=== PATIENT | female | born 1945 | race Caucasian/White ===

== ENCOUNTER 2016-06-12 11:34 | Emergency (ER) | payer MEDICARE, BC ==
--- NOTE | 2016-06-12 12:39 | RAD ---
INDICATION: Traumatic injury to the posterior head after a fall COMPARISON: None. TECHNIQUE: Contiguous axial sections of the brain were obtained from the skull base to the vertex without contrast. FINDINGS: The ventricles, cisterns and sulci mild involutional changes appropriate for the patient's age. There is mild periventricular and subcortical white matter hypoattenuation most compatible with mild microvascular disease. The parham-white matter differentiation is adequately maintained and there is no sulcal effacement. No significant focal abnormality or mass effect is present. There is no evidence for intracranial hemorrhage. There is mild calcified atherosclerosis involving the petrous carotid arteries and bilateral vertebral arteries. No significant focal osseous abnormality is present. There is right-sided deviation of the left nasal bone presumably a chronic finding based on the reported mechanism of injury. The visualized portion of the paranasal sinuses and mastoid air cells appear clear. IMPRESSION: 1. No calvarial fracture or acute intracranial hemorrhage. 2. Right of midline displaced left nasal bone fracture is presumably a chronic finding based on the reported injury. Please correlate to clinical examination. 3. Age-appropriate chronic intracranial findings described above.
[2016-06-12 13:16] VITALS: BP 156/69
--- NOTE | 2016-06-12 15:51 | ED ---
Head Injury - HPI Summary HPI Summary: Patient TAJ after a fall at home and hitting the back of her head. Denies memory loss, confusion, LOC or RUBIO. States she just wants to be safe and make sure there is no brain bleed. Denies anticoagulant usage. Patient has spinal stenosis with surgery scheduled for June. She states over the last few months she has been more off balance because of her back and now uses a cane. She was attempting to put her shoes on when she fell over d/t off balance. She is also endorsing left elbow pain but has full ROM. - History Of Current Complaint Chief Complaint: EDExtremityUpper Stated Complaint: FALL Time Seen by Provider: 06/12/16 11:53 Hx Obtained From: Patient Mechanism Of Injury: Blunt Trauma Onset/Duration: Started Hours Ago Onset of Pain: Immediate Severity Currently: Moderate Severity Initially: Moderate Pain Intensity: 6 Pain Scale Used: 0-10 Numeric Location of Head Injury: Occipital Character: Dull, Throbbing Alleviating Factor(s): Rest - Risk Factors SDH Risk Factor: Recent Trauma, Elderly - Allergies/Home Medications Allergies/Adverse Reactions: Allergies Allergy/AdvReac Type Severity Reaction Status Date / Time Benzyl Alcohol [From Enbrel] Allergy Mild UNKNOWN RXN Verified 06/12/16 11:52 Etanercept [From Enbrel] Allergy Mild UNKNOWN RXN Verified 06/12/16 11:52 Tromethamine [From Enbrel] Allergy Mild UNKNOWN RXN Verified 06/12/16 11:52 Piroxicam [From Feldene] Allergy Dizziness Verified 06/12/16 11:52 PMH/Surg Hx/FS Hx/Imm Hx Previously Healthy: Yes - spinal stenosis Endocrine/Hematology History: Reports: Hx Blood Transfusions, Hx Diabetes, Hx Thyroid Disease, Hx Anemia Cardiovascular History: Reports: Hx Hypertension Denies: Hx Pacemaker/ICD GI History: Reports: Hx Diverticulosis, Hx Gall Bladder Disease - gall bladder removed, Hx Gastroesophageal Reflux Disease, Hx Hiatal Hernia, Hx Ulcer, Other GI Disorders - difficulty swallowing History: Reports: Hx Kidney Infection, Hx Kidney Stones - 1970's, Hx Renal Disease - PER DR PRASAD SHE HAS RENAL DISEASE, Other Problems/Disorders - incontinence Musculoskeletal History: Reports: Hx Arthritis, Hx Rheumatoid Arthritis, Hx Fibromyalgia, Hx Orthopedic Injury - left total knee- 2011, Hx Osteoporosis, Other Musculoskeletal History - chronic pain Sensory History: Reports: Hx Cataracts, Hx Contacts or Glasses, Other Sensory Impairments - dentures Denies: Hx Hearing Aid Opthamlomology History: Reports: Hx Cataracts, Hx Contacts or Glasses, Other Sensory Impairments - dentures Psychiatric History: Denies: Hx Panic Disorder - Cancer History Cancer Type, Location and Year: knee replacement Hx Chemotherapy: No Hx Radiation Therapy: No - Surgical History Surgery Procedure, Year, and Place: gall bladder, bilat total knee replacement , partial hysterectomy,t&a Infectious Disease History: No Infectious Disease History: Reports: Hx Shingles - back in 1959 Denies: Hx of Known/Suspected MRSA, Traveled Outside the [place] in Last 30 Days - Social History Occupation: Retired Lives: With Family Alcohol Use: None Hx Substance Use: No Substance Use Type: Reports: None Smoking Status (MU): Never Smoked Tobacco Review of Systems Constitutional: Negative Eyes: Negative Cardiovascular: Negative Respiratory: Negative Genitourinary: Negative Positive: no symptoms reported, see HPI Positive: Arthralgia - elbow and thoracic and lumbar back at baseline d/t spinal stenosis Neurological: Negative Psychological: Normal All Other Systems Reviewed And Are Negative: Yes Physical Exam Triage Information Reviewed: Yes Vital Signs On Initial Exam: Initial Vitals Temp Pulse Resp BP Pulse Ox 98.1 F 80 16 156/78 99 06/12/16 11:44 06/12/16 11:44 06/12/16 11:44 06/12/16 11:44 06/12/16 11:44 Vital Signs Reviewed: Yes Appearance: Positive: Well-Appearing, No Pain Distress, Well-Nourished Skin: Positive: Warm, Skin Color Reflects Adequate Perfusion Head/Face: Positive: Normal Head/Face Inspection Eyes: Positive: Normal, EOMI, DYLAN, Conjunctiva Clear ENT: Positive: Normal ENT inspection Neck: Positive: Supple, Nontender Respiratory/Lung Sounds: Positive: Clear to Auscultation, Breath Sounds Present Cardiovascular: Positive: Normal Musculoskeletal: Positive: Normal, Strength/ROM Intact Neurological: Positive: Normal, Sensory/Motor Intact, Alert, Oriented to Person Place, Time, Speech Normal Psychiatric: Positive: Normal AVPU Assessment: Alert Diagnostics - Vital Signs Vital Signs Temp Pulse Resp BP Pulse Ox 06/12/16 13:15 98.0 F 73 18 156/69 06/12/16 11:44 98.1 F 80 16 156/78 99 - Laboratory Lab Statement: Any lab studies that have been ordered have been reviewed, and results considered in the medical decision making process. - CT No standard instances CT Interpretation: No Acute Changes CT Interpretation Completed By: Radiologist Head Injury Course/Dx Course Of Treatment: Brain CT showed no acute findings. Denies LOC or memory loss or confusion. Full range of motion in left elbow and without ecchymosis. Will DC home with return precautions. Patient feeling well and just wanted reassurance. - Diagnoses Differential Diagnosis/HQI/PQRI: Cerebral Contusion, Concussion Without LOC, Intracranial Bleed Provider Diagnoses: HI (head injury) Discharge - Discharge Plan Condition: Stable Disposition: HOME Patient Education Materials: Head Injury (ED) Referrals: Maru Bazzi MD [Primary Care Provider] - Additional Instructions: Brain CT was negative for any bleeding or other injury. You may use Tylenol or Ibuprofen as needed for any discomfort. Follow up with your PCP next week. If symptoms worsen or fail to improve, come back to ED for further evaluation.
--- NOTE | 2016-07-05 16:31 | PN ---
Progress Note - Progress Note Note: GCS: 15
== END 2016-06-12 13:15 | disposition home or self-care (01) ==
LOC: ED 11:34
DX: S09.90XA Unspecified injury of head, initial encounter (principal); W19.XXXA Unspecified fall, initial encounter; Y93.9 Activity, unspecified; Y92.9 Unspecified place or not applicable; Y99.9 Unspecified external cause status
CPT/HCPCS: 70450; 99282

== ENCOUNTER 2017-04-12 08:59 | Day surgery (SDC) | payer MEDICARE, BC ==
[~2017-04-12 08:59] MED LIST: Acetaminophen TAB* 325 MG PO PRN; Buffered Lidocaine 0.9% SYRIN* 5 ML/SYR SYRINGE INTRADERM ONE
[2017-04-12] MEDS ORDERED: Midazolam* 1 MG/ML 2 ML VIAL (2 MG) ONE ×2 (11:12→11:28)
[2017-04-12 11:54] VITALS: BP 144/67
[2017-04-12] MEDS ORDERED: Proparacaine 0.5% OPHTH.SOL* 15 ML BTL ONE (12:51)
[2017-04-12] MEDS ORDERED: Lidocaine 2% EPI 1:200000 MPF* 20 ML VIAL ONE (12:51)
[2017-04-12] MEDS ORDERED: Phenylephrine 2.5% OPTH.SOL* 2 ML BTL ONE (12:51)
[2017-04-12] MEDS ORDERED: Cyclopentolate 1% OPTH.SOL* 2 ML BTL ONE (12:51)
[2017-04-12] MEDS ORDERED: Povidone Iodine 5% OPTH* 30 ML BTL ONE (12:51)
[2017-04-12] MEDS ORDERED: Neomycin/Polymy/Dex OPTH.SUSP* MAXITROL 0.1% 5 ML ONE (12:51)
[2017-04-12] MEDS ORDERED: Lidocaine 1% MPF* 2 ML VIAL ONE (12:51)
[2017-04-12] MEDS ORDERED: Ketorolac 0.5% OPHTH (NF) 0.5 % 5 ML BTL ONE (12:51)
[2017-04-12] MEDS ORDERED: acetaZOLAMIDE TAB* 250 MG ONE (12:51)
--- NOTE | 2017-04-12 13:35 | OP ---
DATE OF OPERATION: 04/12/2017 - [facility] DATE OF : 1945. SURGEON: Willard Sabillon M.D. PREOPERATIVE DIAGNOSIS: Cataract left eye. POSTOPERATIVE DIAGNOSIS: Cataract left eye. OPERATIVE PROCEDURE: Extracapsular cataract extraction with intraocular lens implant and CTR left eye. DESCRIPTION OF PROCEDURE: The patient was brought to the operating room after being given 1/2% Alcaine with epinephrine drops in the preoperative area. The eye was prepped and draped in the usual sterile fashion. Sterile drape and eyelid speculum were placed. Again, topical 1/2% Alcaine with epinephrine was given. A paracentesis incision was made at the 3 o'clock position with the No.75 blade. Clear cornea incision 2.2 x 2.2-mm was created at the 6 o'clock position starting at the anterior limbus using the 2.2-mm keratome. The anterior chamber was irrigated with 0.4 mL of 1% non-preservative intracameral lidocaine and filled with DisCoVisc. A capsulorrhexis was completed using the cystotome and the Utrata forceps. Hydrodissection was performed with balanced salt solution. The lens nucleus was removed with the Phacoemulsification handpiece without incident. Cortex was removed with the irrigation-aspiration handpiece. The capsular bag was re-inflated using DisCoVisc and an [id number] 22.5 implant was inserted with the shooter, followed by a capsular tension ring ACTR 11 inserted with its shooter. The irrigation- aspiration handpiece was used to remove all residual DisCoVisc. The eye was refilled with balanced salt solution and the wound checked and found to be watertight. Topical Maxitrol drops were given. [id number]/[facility] #: [id number] [facility] CENTERLoly
== END 2017-04-12 12:09 | disposition home or self-care (01) ==
LOC: OREAST 08:59
PROVIDERS: ATTEND Specialist
DX: H25.812 Combined forms of age-related cataract, left eye (principal); E11.3213 Type 2 diabetes mellitus with mild nonproliferative diabetic retinopathy with macular edema, bilateral; H35.81 Retinal edema; H40.1424 Capsular glaucoma with pseudoexfoliation of lens, left eye, indeterminate stage; Z79.84 Long term (current) use of oral hypoglycemic drugs; Z79.4 Long term (current) use of insulin; I12.9 Hypertensive chronic kidney disease with stage 1 through stage 4 chronic kidney disease, or unspecified chronic kidney disease; N18.9 Chronic kidney disease, unspecified; E03.9 Hypothyroidism, unspecified; K21.9 Gastro-esophageal reflux disease without esophagitis; R13.10 Dysphagia, unspecified
CPT/HCPCS: A9270-GY; J2250; V2632

== ENCOUNTER 2017-04-19 06:54 | Day surgery (SDC) | payer MEDICARE, BC ==
[2017-04-19] MEDS ORDERED: Midazolam* 1 MG/ML 2 ML VIAL (2 MG) ONE ×3 (07:18→08:54)
[2017-04-19] MEDS ORDERED: Propofol* 10 MG/ML 20 ML BTL IV PUSH ONE (08:37)
[2017-04-19 09:33] VITALS: BP 140/81
--- NOTE | 2017-04-19 10:04 | OP ---
DATE OF OPERATION: 04/19/2017. DATE OF : 1945. SURGEON: Willard Sabillon M.D. PREOPERATIVE DIAGNOSIS: Cataract right eye. POSTOPERATIVE DIAGNOSIS: Cataract right eye. OPERATIVE PROCEDURE: Extracapsular cataract extraction with intraocular lens implant right eye. PROCEDURE: The patient was brought to the operating room after being given 1/2% Alcaine with epineph rine drops in the preoperative area. The eye was prepped and draped in the usual sterile fashion. S terile drape and eyelid speculum were placed. Again, topical 1/2% Alcaine with epinephrine was given . A paracentesis incision was made at the 9 o'clock position with the No.75 blade. Clear cornea inc ision 2.2 x 2.2-mm was created at the 12 o'clock position starting at the anterior limbus using the 2 .2-mm keratome. The anterior chamber was irrigated with 0.4 mL of 1% non-preservative intracameral l idocaine and filled with DisCoVisc. A capsulorrhexis was completed using the cystotome and the Utrat a forceps. Hydrodissection was performed with balanced salt solution. The lens nucleus was removed w ith the Phacoemulsification handpiece without incident. Cortex was removed with the irrigation-aspir ation handpiece. The capsular bag was re-inflated using DisCoVisc and an SN60WF 22.5 implant was ins erted with the shooter. The irrigation-aspiration handpiece was used to remove all residual DisCoVis c. The eye was refilled with balanced salt solution and the wound checked and found to be watertight . Topical Maxitrol drops were given. [id number]/[facility] #: [id number]
[2017-04-19] MEDS ORDERED: Cyclopentolate 1% OPTH.SOL* 2 ML BTL ONE (11:55)
[2017-04-19] MEDS ORDERED: acetaZOLAMIDE TAB* 250 MG ONE (11:55)
[2017-04-19] MEDS ORDERED: Neomycin/Polymy/Dex OPTH.SUSP* MAXITROL 0.1% 5 ML ONE (11:56)
[2017-04-19] MEDS ORDERED: Ketorolac 0.5% OPHTH (NF) 0.5 % 5 ML BTL ONE (11:56)
[2017-04-19] MEDS ORDERED: Povidone Iodine 5% OPTH* 30 ML BTL ONE (11:56)
[2017-04-19] MEDS ORDERED: Phenylephrine 2.5% OPTH.SOL* 2 ML BTL ONE (11:56)
[2017-04-19] MEDS ORDERED: Lidocaine 2% EPI 1:200000 MPF* 20 ML VIAL ONE (11:56)
[2017-04-19] MEDS ORDERED: Proparacaine 0.5% OPHTH.SOL* 15 ML BTL ONE (11:56)
[2017-04-19] MEDS ORDERED: Lidocaine 1% MPF* 2 ML VIAL ONE (11:56)
== END 2017-04-19 09:34 | disposition home or self-care (01) ==
LOC: OREAST 06:54
PROVIDERS: ATTEND Specialist
DX: H25.811 Combined forms of age-related cataract, right eye (principal); H40.1421 Capsular glaucoma with pseudoexfoliation of lens, left eye, mild stage; E11.3213 Type 2 diabetes mellitus with mild nonproliferative diabetic retinopathy with macular edema, bilateral; Z79.84 Long term (current) use of oral hypoglycemic drugs; Z79.899 Other long term (current) drug therapy; E03.9 Hypothyroidism, unspecified; I10 Essential (primary) hypertension; M06.9 Rheumatoid arthritis, unspecified; E78.5 Hyperlipidemia, unspecified; E55.9 Vitamin D deficiency, unspecified
CPT/HCPCS: A9270-GY; J2250; J2704; V2632

== ENCOUNTER 2018-02-19 06:04 | Day surgery (SDC) | payer MEDICARE, BC ==
--- NOTE | 2018-02-15 16:39 | HP ---
HISTORY AND PHYSICAL: DATE OF ADMISSION: 02/19/18 CHIEF COMPLAINT: End-stage renal disease. HISTORY OF PRESENT ILLNESS: The patient is a 72-year-old female referred and being admitted today to the hospital for creation of an arteriovenous fistula on the left arm for hemodialysis. The patient has been slowly and gradually progressing into renal failure to the point that it is anticipated that she will be requiring hemodialysis soon. She is at a stage 4 renal failure and for this reason she has been admitted for placement of an AV graft. The patient's past medical history that contributed to her renal failure is kidney stones, diabetes mellitus, hypertension, and chronic use of nonsteroidal anti- inflammatories for arthritis. PAST MEDICAL HISTORY: Remarkable for spinal stenosis for which she underwent back surgery, bilateral knee replacement for osteoarthritis of the knees, hypertension, insulin-dependent diabetes mellitus, osteoarthritis, and gastroesophageal reflux disease. CURRENT MEDICATIONS: Include: 1. Omeprazole 20 mg p.o. daily. 2. Glipizide ER 10 mg p.o. daily. 3. Levothyroxine sodium 100 mcg p.o. daily. 4. Toviaz 8 mg. 5. Lantus SoloSTAR insulin 100 units. 6. Simvastatin 20 mg. 7. Candesartan 4 mg p.o. daily. 8. Amitriptyline 25 mg p.o. b.i.d. 9. Metoprolol 25 mg p.o. daily, long lasting. 10. Januvia 100 mg p.o. daily. 11. Vitron-C 65/125 p.o. daily. 12. Preston-3 fatty acids. 13. D-Mannose 500 mg p.o. daily. 14. B complex p.o. daily. ALLERGIES: The patient is allergic to ENBREL and FELDENE. FAMILY HISTORY: Remarkable for father with colon cancer at age 80 and had pulmonary embolism following surgery and another brother with colon cancer. SOCIAL HISTORY: The patient is retired, nonsmoker. REVIEW OF SYSTEMS: Contributory for: Musculoskeletal: Osteoarthritis. Cardiovascular: Hypertension. Endocrine: Diabetes. Urinary System: Renal failure. PHYSICAL EXAMINATION GENERAL: The patient is alert and oriented, cooperative with this exam. VITAL SIGNS: Height is 65 inches, weight 165 pounds, blood pressure is 142/88, BMI of 27.5, pulse of 77, respirations of 18. HEAD AND NECK: Reveal no neck nodes or masses. No thyromegaly. No bruits. No JVD. LUNGS: Clear to auscultation bilaterally. HEART: Regular without murmurs. ABDOMEN: Soft. No organomegaly. EXTREMITIES: Upper extremities: The patient has excellent palpable pulses bilaterally at the axillary, brachial, radial and ulnar, all palpable and present. Examination of the patient's veins reveals poor quality veins at the level of the forearm. The patient has good size antecubital vein on the left side and a good brachial pulse making the left arm being the nondominant arm adequate for placement of a [place]-Yonathan graft for dialysis. The patient is not a candidate for a [place] fistula, especially she is going to be started soon on hemodialysis. The remaining of the lower extremity examination is unremarkable. DIAGNOSTIC IMPRESSION: End-stage renal disease. PLAN: The plan is admission for placement of hemodialysis AV graft of the left arm. The patient understands the potential complications including but not exclusive of others such as infection, occlusion, bleeding, hematoma, edema, etc. The patient understands, agrees and wishes to proceed. [id number]/[facility] #: [id number] MTDD
[~2018-02-19 06:04] MED LIST changes: -Acetaminophen TAB* 325 MG PO PRN; +NS 0.9% 1000 ML* 1,000 ML IV SCH
[2018-02-19] MEDS ORDERED: Buffered Lidocaine 0.9% SYRIN* 5 ML/SYR SYRINGE ONE (06:18)
[2018-02-19] MEDS ORDERED: ceFAZolin 2 GM PREMIX in ORs 2 GM/50 ML BAG IVPB ONE (06:18)
[2018-02-19] MEDS ORDERED: Lidocaine 1% INJ* 10 MG/ML 30 ML SDV ONE (07:06)
[2018-02-19] MEDS ORDERED: Heparin DIALYSIS ONLY(*) 1,000 UNITS/ML VIAL ONE (07:06)
[2018-02-19] MEDS ORDERED: Heparin 2 UNITS/ML IVPREMIX* 1,000 ML IV ONE (07:08)
[2018-02-19] MEDS ORDERED: fentaNYL* 50 MCG/ML 2 ML VIAL (100 MCG VIAL) ONE (07:10)
[2018-02-19] MEDS ORDERED: Midazolam* 1 MG/ML 2 ML VIAL (2 MG) ONE (07:10)
[2018-02-19] MEDS ORDERED: Lidocaine 2% PF * 5 ML VIAL ONE (07:59)
[2018-02-19] MEDS ORDERED: Famotidine IV* 10 MG/ML 2 ML (20 mg) ONE (08:00)
[2018-02-19] MEDS ORDERED: Propofol* 10 MG/ML 20 ML BTL IV PUSH ONE (08:00)
[2018-02-19] MEDS ORDERED: Bupivacaine 0.5% SDV PF* 30ML VIAL ONE (08:24)
[2018-02-19] MEDS ORDERED: Ondansetron INJ* 2 MG/ML VIAL IV PRN (08:27)
[2018-02-19] MEDS ORDERED: Naloxone* 0.4 MG/ML 1 ML VIAL IV PRN (08:27)
[2018-02-19] MEDS ORDERED: fentaNYL* 50 MCG/ML 2 ML VIAL (100 MCG VIAL) IV PRN (08:27)
[2018-02-19] MEDS ORDERED: Acetaminophen TAB* 325 MG PO PRN (08:27)
[2018-02-19] MEDS ORDERED: DiMENhydriNATE IV* 50 MG/ML VIAL IV PUSH PRN (08:27)
[2018-02-19 10:33] VITALS: BP 144/93
--- NOTE | 2018-02-20 03:52 | OP ---
DATE OF OPERATION: 02/19/18 [facility] DATE OF : [birth year] SURGEON: Dada Gallegos MD. MOLDING MACHINE TENDER: Summer Oliveros NP ANESTHESIA: Local plus MAC. PRE-OP DIAGNOSIS: End-stage renal disease. POST-OP DIAGNOSIS: End-stage renal disease. OPERATIVE PROCEDURE: Creation of left arm arteriovenous graft with Propaten Christiana- Yonathan taper 4 to 6. ESTIMATED BLOOD LOSS: None. INDICATIONS: The patient is a 72-year-old female with history of end-stage renal disease requiring hemodialysis. For this reason, the patient was brought in for placement of an arteriovenous graft. DESCRIPTION OF PROCEDURE: The patient was taken to the procedure room. She was placed in supine position. Proper identification of the patient and site of surgery was done. Under sedation, the patient was prepped and draped in the usual sterile fashion. After this was completed, lidocaine 1% was used to infiltrate on the antecubital fossa and a transverse incision was made over this area. The incision was carried down through the skin, subcutaneous tissue. Bleeders were controlled by electrocoagulation. After this was done, exposure of the left cephalic vein in the antecubital area was done. The vein was then encircled in vessel loops and after this was completed, we then proceeded to open the antecubital fascia, exposed the brachial artery at this level, which was then encircled in vessel loops proximally and distally, and after this was completed, we then proceeded to map the loop in order to tunnel the graft and once this was done, we used a curved tunneler and proceeded to tunnel the graft with a counter incision more distally using Propaten Christiana graft , 4 to 6 mm taper 4 mm to the brachial artery and 6 mm to the cephalic vein. After the graft was tunneled and in place, the patient received 3000 units of heparin and 5 minutes later, we then proceeded to crossclamp the cephalic vein proximally and distally. A venotomy was done with an 11 blade and this was extended with Johnson scissors. The Christiana-Yonathan graft was then beveled to the anastomosis and then an end-to-side anastomosis was done using 7-0 Prolene. After this was completed, the graft was then irrigated with heparinized saline. Good flow was noted into the veins and after this was done, we then proceeded to clamp the graft and proceeded to perform the arterial anastomosis. At this point, we then proceeded to cross clamp the brachial artery distally. Then proximally, an arteriotomy was done with 11 blade. This was extended with Johnson scissors and the 4 mm end of the graft was then anastomosed to the brachial artery using 7-0 Prolene continuous fashion in an end-to-side anastomosis. After this was completed, the venous site clamp was then released. The brachial artery clamps were opened into the graft. There was excellent flow into the veins. There was excellent palpable radial pulse and good thrill towards the venous side of the anastomosis. After this was completed, no bleeding was noted. The subcutaneous tissue was closed with interrupted 4-0 Prolene and the skin was closed with subcuticular 5-0 Monocryl. The counter incision was closed in the same manner as well. The patient tolerated the procedure well and she was taken in good condition to recovery room. [id number]/[facility] #: [id number] MTDD
== END 2018-02-19 10:37 | disposition home or self-care (01) ==
LOC: OR 06:04
PROVIDERS: ATTEND Surgery
DX: N18.6 End stage renal disease (principal); I12.9 Hypertensive chronic kidney disease with stage 1 through stage 4 chronic kidney disease, or unspecified chronic kidney disease; E03.9 Hypothyroidism, unspecified; E11.9 Type 2 diabetes mellitus without complications; Z79.4 Long term (current) use of insulin; Z79.84 Long term (current) use of oral hypoglycemic drugs
CPT/HCPCS: C1768; J0690; J1644; J2250; J2704; J3010

== ENCOUNTER 2018-02-28 22:32 | Emergency (ER) | payer MEDICARE, BC ==
--- OUTSIDE RECORDS SUMMARY | 2018-02-28 22:49 | XMS REPORT | Continuity of Care Document ---
:1945 External Reference #:[id number] Author Name Abel Santiago MD Address [address] [place] [address] Care Team Providers Name Role Phone Maru Bazzi M.D. Care Team Information Color Checker Roving Or Yarn Unavailable Maru Bazzi M.D. Primary Care Physician Unavailable Payers Type Date Identification Numbers Payment Provider Subscriber Policy Number: [id number] [place] [employer] Alan Espino PayID: [id number] [address] [facility] [address] Policy Number: [id number] [facility] Alan Espino PayID: [id number] [address] [address] [place] [address] Advance Directives Description No Information Available Problems Date Description Provider Status Onset: 02/12/2018 Gastroesophageal reflux disease Michell Espino PA-C Active Onset: 02/12/2018 Sore throat symptom Michell Espino PA-C Active Family History Date Family Member(s) Problem(s) Comments General Cancer General Diabetes General Thyroid Disease Onset: (1959) General Pulmonary Embolism Mother Social History Type Date Description Comments Sex Unknown Occupation Retired Tobacco Use Start: Unknown Never Smoked Cigarettes Tobacco Use Start: Unknown Never Smoked Cigars Tobacco Use Start: Unknown Never Smoked A Pipe Smokeless Tobacco Never Used Smokeless Tobacco ETOH Use Currently rarely consumes alcohol Tobacco Use Start: Unknown Patient has never smoked Smoking Status Reviewed: 02/27/18 Patient has never smoked Allergies, Adverse Reactions, Alerts Date Description Reaction Status Severity Comments 10/15/2015 Feldene Active 10/15/2015 Enbrel Active Medications Medication Date Status Form Strength Qnty SIG Indications Ordering Provider Clotrimazole 02/27/ Active Lozenges 10mg 70unit 1 lozenge Abel 2017 s 5 times a E. Jack, day Toviaz / Active Tablets ER 8mg as Rose Mary, 0000 24HR directed Maru Singleton Diovan / Active Tablets 80mg 1 by mouth Rose Mary, 0000 every day Maru Singleton Glucosamine / Active Capsules 1500Com 1 by mouth Rose Mary, Chondroitin 0000 every day Maru 1500 Complex Mani Levothyroxine / Active Tablets 88mcg 1 by mouth Rose Mary, Sodium 0000 every day Maru Singleton Amitriptyline / Active Tablets 25mg 25 mg Rose Mary, HCL 0000 every Maru night at M.DClaire bedtime Januvia / Active Tablets 100mg 1 by mouth Rose Mary, 0000 every day Maru Singleton Lovaza / Active Capsules 1gm as Rose Mary, 0000 directede Maru Singleton Breeze 2 Test / Active Rose Mary, Discs And 0000 Maru Khan M.D. Liothyronine / Active Tablets 5mcg 2 by mouth Rose Mary, Sodium 0000 every day Maru Singleton Glipizide ER / Active Tablets ER 5mg 1 by mouth Rose Mary, 0000 24HR every day Maru Singleton Omeprazole / Active Tablets DR 20mg 1 by mouth Rose Mary, 0000 every day Maru Singleton Voltaren / Active Gel 1% apply Rose Mary, 0000 small Maru valerio M.D. four times a day Cranberry / Active Capsules 250mg 1 by mouth Rose Mary, 0000 every day Maru Singleton Mannose Powder / Active as Rose Mary, 0000 directed Maru Singleton Simvastatin / Active Tablets 20mg 1 by mouth Rose Mary, 0000 every day Maru Singleton Acidophilus / Active Capsules as Rose Mary, 0000 directed Maru Singleton Topiaz / Active as Rose Mary, 0000 directed Maru Singleton Lantus Solostar / Active Solution 100Unit/ML Rose Mary, 0000 Pen-Inject Maru M.D. Vitamin B / Active Tablets 1 by mouth Unknown Complex 0000 every day Cefuroxime / Hx Tablets 500mg 1 by mouth Rose Mary, Axetil 0000 - twice a Maru day M.D. 2017 Janet Breeze 2 / Hx Liquid Normal Rose Mary, Control 0000 - Maru M.D. 2017 Ascensia / Hx Liquid Normal Rose Mary, Autodisc Normal 0000 - Maru Control M.D. 2017 Metformin HCL / Hx Tablets 850mg 1 by mouth Rose Mary, 0000 - twice a Maru day M.D. 2017 Zocor / Hx Tablets 20mg take as Rose Mary, 0000 - directed Maru 02/11/ M.D. 2017 Feldene / Hx Capsules 10mg as Rose Mary, 0000 - directed Maru 10/13/ M.D. 2015 Enbrel / Hx Solution 25mg as Rose Mary, 0000 - Rec directed Maru 10/14/ M.D. 2015 Immunizations Description No Information Available Vital Signs Date Vital Result Comment 02/27/2018 9:38am Weight 168.00 lb Weight 76.205 kg Height 65 inches 5'5" Height in cm's 165.1 cm BMI (Body Mass Index) 28.0 kg/m2 02/12/2018 2:49pm Weight 167.00 lb Weight 75.751 kg Height 65 inches 5'5" Height in cm's 165.1 cm BMI (Body Mass Index) 27.8 kg/m2 10/15/2015 2:47pm BP Systolic 127 mmHg BP Diastolic 85 mmHg Heart Rate 109 /min Respiratory Rate 17 /min Weight 164.00 lb Weight 74.390 kg Height 66 inches 5'6" Height in cm's 167.6 cm BMI (Body Mass Index) 26.5 kg/m2 Results Test Date Facility Test Result H/L Range Note Laboratory test 10/15/2015 [facility] Erythrocyte Sed 18 mm/Hr 0-40 finding c/o [facility] [place] [address] [phone] Procedures Date Code Description Status 02/27/2018 51733 Fiberoptic Laryngoscopy Completed Encounters Type Date Location Provider Dx Diagnosis Office Visit 02/12/2018 [place] Michell Espino PA-C R07.0 Pain in throat 2:30p 05/01/07 K21.9 Gastro-esophageal reflux disease without esophagitis Office Visit 10/15/2015 2:45p [place],[facility] 05/01/07 Abel Kelly R22.1 Localized MD Jack swelling, mass and lump, neck Plan of Treatment Future Appointment(s):03/16/2018 9:00 am - Abel Santiago MD at [place], After 05/01/809 - Abel Santiago, MDR07.0 Pain in skilizY17.10 Dysphagia, unspecified
--- OUTSIDE RECORDS SUMMARY | 2018-02-28 22:49 | XMS REPORT | Continuity of Care Document ---
:1945 External Reference #:[id number] Author Name Michell Espino PA-C Address [address] [place] [address] Care Team Providers Name Role Phone Maru Bazzi M.D. Care Team Information [employer] Unavailable Maru Bazzi M.D. Primary Care Physician Unavailable Payers Type Date Identification Numbers Payment Provider Subscriber Policy Number: [id number] [place] [employer] Alan Espino PayID: [id number] [address] [facility] [place] [address] Policy Number: [id number] [facility] Alan Espino PayID: [id number] [address] [address] [place] [address] Advance Directives Description No Information Available Problems [...] Use Start: Unknown Patient has never smoked Allergies, Adverse Reactions, Alerts Date Description Reaction Status Severity Comments 10/15/2015 Feldene Active 10/15/2015 Enbrel Active Medications Medication Date Status Form Strength Qnty SIG Indications Ordering Provider Toviaz / Active Tablets ER 8mg as directed Rose Mary, 0000 24HR Maru Singleton Diovan / Active Tablets 80mg 1 by mouth Rose Mary, 0000 every day Maru Singleton Glucosamine / Active Capsules 1500Com 1 by mouth Rose Mary, Chondroitin 0000 every day Maru 1500 Complex M.Igor Levothyroxine / Active Tablets 88mcg 1 by mouth Rose Mary, Sodium 0000 every day Maru Singleton Amitriptyline / Active Tablets 25mg 25 mg every Rose Mary, HCL 0000 night at Maru bedtime Wild.Igor Januvia / Active Tablets 100mg 1 by mouth Rose Mary, 0000 every day Maru Singleton Lovaza / Active Capsules 1gm as Rose Mary, 0000 directede Maru Singleton Breeze 2 Test / Active Rose Mary, Discs And 0000 Maru Lancets Mani Liothyronine / Active Tablets 5mcg 2 by mouth Rose Mary, Sodium 0000 every day Maru Singleton Glipizide ER / Active Tablets ER 5mg 1 by mouth Rose Mary, 0000 24HR every day Maru Singleton Omeprazole / Active Tablets DR 20mg 1 by mouth Rose Mary, 0000 every day Maru Singleton Voltaren / Active Gel 1% apply small , 0000 amount four Maru times a day M.DClaire Cranberry / Active Capsules 250mg 1 by mouth Rose Mary, 0000 every day Maru Singleton Mannose Powder / Active as directed Rose Mary, 0000 Maru Singleton Simvastatin / Active Tablets 20mg 1 by mouth Rose Mary, 0000 every day Maru Singleton Acidophilus / Active Capsules as directed Rose Mary, 0000 Maru Singleton Topiaz / Active as directed Rose Mary, 0000 Maru Singleton Lantus Solostar / Active Solution 100Unit/ML Rose Mary, 0000 Pen-Inject Maru Singleton Vitamin B / Active Tablets 1 by mouth Unknown Complex 0000 every day Cefuroxime / Hx Tablets 500mg 1 by mouth Rose Mary, Axetil 0000 - twice a day Maru .D. 2017 Janet Breeze 2 / Hx Liquid Normal Rose Mary, Control 0000 - Maru .D. 2017 Ascensia / Hx Liquid Normal Rose Mary, Autodisc Normal 0000 - Maru Control .D. 2017 Metformin HCL / Hx Tablets 850mg 1 by mouth Rose Mary, 0000 - twice a day Maru .D. 2017 Zocor / Hx Tablets 20mg take as Rose Mary, 0000 - directed Maru M.D. 2017 Feldene / Hx Capsules 10mg as directed Rose Mary, 0000 - Maru M.D. 2015 Enbrel / Hx Solution 25mg as directed Rose Mary, 0000 - Rec Maru M.D. 2015 Immunizations Description No Information Available Vital Signs Date Vital Result Comment 02/12/2018 2:49pm Weight 167.00 lb Weight 75.751 [...] Result H/L Range Note Laboratory test 10/15/2015 [facility] Erythrocyte Sed 18 mm/Hr 0-40 finding c/o [facility] [place] [address] [phone] Procedures Description No Information Available Encounters Type Date Location Provider Dx Diagnosis Office Visit 02/12/2018 [place] Michell Espino PA-C R07.0 Pain in throat 2:30p 05/01/07 K21.9 Gastro-esophageal reflux disease without esophagitis Office Visit 10/15/2015 2:45p [place] 05/01/07 Abel Kelly R22.1 Localized MD Jack swelling, mass and lump, neck Plan of Treatment Future Appointment(s):02/27/2018 9:30 am - Abel Santiago MD at [place], After 05/01/809 - KEVIN Smith-CR07.0 Pain in [id number] Gastro- esophageal reflux disease without esophagitisComments:Alan is reassured that there are no ominous findings that would suggest cancer. There are findings that could suggest acid reflux within or near to the larynx. I have asked her to try [id number] omeprazole or Nexium 20 mg twice a day for no more than a month to see if this helps. 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 She understands to call if she feels her symptoms are worsening or changing, or for questions should they arise.
[2018-02-28] MEDS ORDERED: Ondansetron INJ* 2 MG/ML VIAL IV ONE (23:20)
[2018-02-28] MEDS ORDERED: NS 0.9% 1000 ML* 1,000 ML IV ONE (23:20)
[2018-02-28] MEDS ORDERED: Morphine INJ* 4 MG/ML 1 ML SYRINGE (NEW SYRINGE VERSION) IV ONE (23:20)
--- NOTE | 2018-02-28 23:22 | ED ---
HPI Chest Pain - HPI Summary HPI Summary: This patient is a 72 year old F presenting to [facility] accompanied by daughter with a chief complaint of mid-sternal, lower CP that began on 02/24/2018. The patient rates the pain 8/10 in severity. Symptoms aggravated by nothing. Symptoms alleviated by nothing. Patient reports difficulty swallowing and nausea. Patient denies vomiting. Patient states she was recently diagnosed with thrush. Patient states she is in stage 4 renal failure and recently had an AV fistula placed in left arm. Patient states she is not currently on dialysis. - History of Current Complaint Chief Complaint: EDGeneral Time Seen by Provider: 02/28/18 23:12 Hx Obtained From: Patient Onset/Duration: Started Days Ago, Atraumatic, Still Present Timing: Constant Initial Severity: Severe Current Severity: Severe Pain Intensity: 8 Pain Scale Used: 0-10 Numeric Chest Pain Location: Mid Sternal, Lower Sternal Chest Pain Radiates: No Aggravating Factor(s): Nothing Alleviating Factor(s): Nothing Associated Signs and Symptoms: Positive: Nausea, Other: - Positive difficulty swallowing. Negative: Vomiting - Additional Pertinent History Primary Care Physician: [id number] - Allergy/Home Medications Allergies/Adverse Reactions: Allergies Allergy/AdvReac Type Severity Reaction Status Date / Time etanercept [From Enbrel] Allergy tendonitis Verified 02/19/18 06:25 in knees piroxicam [From Feldene] Allergy Dizziness Verified 02/19/18 06:25 PMH/Surg Hx/FS Hx/Imm Hx Previously Healthy: No Endocrine/Hematology History: Reports: Hx Blood Transfusions, Hx Diabetes - type 2, Hx Thyroid Disease, Hx Anemia Cardiovascular History: Reports: Hx Hypertension Denies: Hx Pacemaker/ICD, Other Cardiovascular Problems/Disorders Respiratory History: Denies: Other Respiratory Problems/Disorders GI History: Reports: Hx Diverticulosis, Hx Gall Bladder Disease - gall bladder removed, Hx Gastroesophageal Reflux Disease, Hx Hiatal Hernia, Hx Ulcer, Other GI Disorders - difficulty swallowing does bother somewhat History: Reports: Hx Kidney Infection, Hx Kidney Stones - 1970's, Hx Renal Disease - PER DR PRASAD SHE HAS RENAL DISEASE, Other Problems/Disorders - incontinence Musculoskeletal History: Reports: Hx Arthritis, Hx Rheumatoid Arthritis, Hx Bursitis - right shoulder, Hx Fibromyalgia, Hx Orthopedic Injury - left total knee- 2011, Hx Osteoporosis, Other Musculoskeletal History - chronic pain Sensory History: Reports: Hx Cataracts - both eye, Hx Contacts or Glasses, Other Sensory Impairments - dentures Denies: Hx Hearing Aid Opthamlomology History: Reports: Hx Cataracts - both eye, Hx Contacts or Glasses , Other Sensory Impairments - dentures Neurological History: Denies: Other Neuro Impairments/Disorders Psychiatric History: Denies: Hx Panic Disorder - Cancer History Cancer Type, Location and Year: knee replacement Hx Chemotherapy: No Hx Radiation Therapy: No - Surgical History Surgery Procedure, Year, and Place: gall bladder, bilat total knee replacement , partial hysterectomy,t&a. lumbar spinal surgery 06/2016. , partial hysterectomy, 1978, [facility]. ,t&a as a child. lumbar spinal surgery 06/2016, [facility] Hx Anesthesia Reactions: No - Immunization History Date of Influenza Vaccine: 2018 Immunizations Up to Date: Yes Infectious Disease History: No Infectious Disease History: Reports: Hx Shingles - back in 1959 Denies: Hx of Known/Suspected MRSA, Traveled Outside the in Last 30 Days - Family History Known Family History: Positive: Diabetes Negative: Cardiac Disease - Social History Occupation: Retired Lives: Alone Alcohol Use: Rare Alcohol Amount: social Hx Substance Use: No Substance Use Type: Reports: None Smoking Status (MU): Never Smoked Tobacco Review of Systems Positive: Chest Pain Positive: Nausea, Other - Positive difficulty swallowing. Negative: Vomiting All Other Systems Reviewed And Are Negative: Yes Physical Exam - Summary Physical Exam Summary: Appearance: Well appearing, no pain distress Skin: warm, dry, reflects adequate perfusion Head/face: normal Eyes: EOMI, DYLAN ENT: normal Neck: supple, non-tender Respiratory: CTA, breath sounds present Cardiovascular: tachycardia, pulses symmetrical Abdomen: non-tender, soft Bowel: present Musculoskeletal: normal, strength/ROM intact Neuro: normal, sensory motor intact, A&Ox3 Triage Information Reviewed: Yes Vital Signs On Initial Exam: Initial Vitals Temp Pulse Resp BP Pulse Ox 98.9 F 78 20 140/66 100 02/28/18 22:34 02/28/18 22:34 02/28/18 22:34 02/28/18 22:34 02/28/18 22:34 Vital Signs Reviewed: Yes Diagnostics - Vital Signs Vital Signs Temp Pulse Resp BP Pulse Ox 02/28/18 22:34 98.9 F 78 20 140/66 100 - Laboratory Result Diagrams: 02/28/18 23:41 02/28/18 23:41 Lab Statement: Any lab studies that have been ordered have been reviewed, and results considered in the medical decision making process. - Radiology CXR Radiology Interpretation Completed By: ED Physician Summary of Radiographic Findings: CXR reveals, per ED physician, no acute disease. - CT CT Abdomen and Pelvis CT Interpretation Completed By: Radiologist Summary of CT Findings: CT abdomen and pelvis reveals, per radiologist, 1. No acute findings. 2. 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 recommend 6 month followup. 1. No acute findings. The previously noted stones located and in the left ureterovesical junction has cleared. No hydronephrosis is seen. 2. No evidence of bowel obstruction. Diverticular changes involving the sigmoid colon. No evidence of acute diverticulitis. No abnormal bowel wall thickening. ED physician has reviewed this radiology report. - EKG 2323 Cardiac Rate: NL EKG Rhythm: Sinus Rhythm - [address] Segment: Normal Ectopy: None Summary of EKG Findings: An EKG taken at 2323 reveals normal sinus rhythm at 75 BPM with no acute changes. Chest Pain Course/Dx - Course Course Of Treatment: This patient is a 72 year old F presenting to [facility] accompanied by daughter with a chief complaint of mid-sternal, lower CP that began on 02/24/2018. Physical Exam Findings: Tachycardia. An EKG taken at 2323 reveals normal sinus rhythm at 75 BPM with no acute changes. CXR reveals, per ED physician, no acute disease. CT abdomen and pelvis reveals, per radiologist , 1. No acute findings. 2. 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 recommend 6 month followup. 1. No acute findings. The previously noted stones located and in the left ureterovesical junction has cleared. No hydronephrosis is seen. 2. No evidence of bowel obstruction. Diverticular changes involving the sigmoid colon. No evidence of acute diverticulitis. No abnormal bowel wall thickening. Bloodwork obtained. In the ED course the patient was given hydromorphone, fluids, morphine, and Zofran. Unlikely ACS at this time. Patient will be discharged with follow up from PCP and GI. The patient is agreeable with this plan. - Chest Pain Differential Diagnosis/HQI/PQRI: Chest Wall, Other: - abd pain - Diagnoses Provider Diagnoses: Atypical chest pain, Abdominal pain Discharge - Sign-Out/Discharge Documenting (check all that apply): Patient Departure - Discharge home - Discharge Plan Condition: Stable Disposition: HOME Patient Education Materials: Chest Pain (ED), Abdominal Pain (ED) Referrals: Maru Bazzi MD [Primary Care Provider] - 3 Days Katerine Byrnes MD [Medical Doctor] - As Soon As Possible Additional Instructions: RETURN TO THE EMERGENCY DEPARTMENT FOR NEW OR WORSENING SYMPTOMS - Billing Disposition and Condition Condition: STABLE Disposition: Home - Attestation Statements Document Initiated by Scribe: Yes Documenting Scribe: Neeru Weber Provider For Whom Scribe is Documenting (Include Credential): Jose Alberto Watts Scribe Attestation: Neeru Adams, lucyed for Jose Alberto Watts on 03/01/18 at 0357. Scribe Documentation Reviewed: Yes Provider Attestation: The documentation as recorded by the Neeru vega accurately reflects the service I personally performed and the decisions made by Jose Alberto rosenberg
[2018-02-28 23:47] LABS: ABS Basophils 0.1 10^3/ul (0-0.2); ABS Eosinophils 0.4 10^3/ul (0-0.6); ABS Monocytes 0.5 10^3/ul (0-0.8); ABS Neutrophils 2.9 10^3/ul (1.5-7.7); ABS Nucleated RBC 0 10^3/ul; Eosinophil % 7.5 % (0-6); Hematocrit 32 % (35-47); Hemoglobin 10.7 g/dl (12.0-16.0); Lymphocyte % 34.2 % (25-47); Mean Corpuscular HGB Conc 34 g/dl (31-36); Mean Corpuscular Hemoglobin 30 pg (27-31); Mean Corpuscular Volume 88 fL (80-97); Mean Platelet Volume 7.3 um3 (7.4-10.4); Nucleated Red Blood Cells % 0.1; Platelet Count 274 10^3/ul (150-450); Red Blood Count 3.59 10^6/ul (4.00-5.40); Red Cell Distribution Width 14 % (10.5-15)
[2018-02-28 23:56] LABS: INR 1.05 (0.77-1.02)
[2018-03-01 00:07] LABS: EGFR Non-African American 17.2 (>60)
[2018-03-01] MEDS ORDERED: HYDROmorphone INJ* 2 MG/ML CARPUJECT SYRINGE IV SLOW PU ONE (00:59)
[2018-03-01] MEDS ORDERED: HYDROmorphone INJ* 0.5 MG/0.5 ML SYRINGE ONE (01:01)
[2018-03-01] MEDS ORDERED: HYDROmorphone INJ* 0.5 MG/0.5 ML SYRINGE IV SLOW PU ONE (01:03)
--- NOTE | 2018-03-01 01:58 | RAD ---
EXAM: CT Chest Without Intravenous Contrast EXAM DATE/TIME: 03/01/2018 12:53 AM CLINICAL HISTORY: 72 years old, female; Pain; Abdominal pain; Epigastric; Sternal or substernal pain; Additional info: Epigastric pain radiating to the back/dysphagia TECHNIQUE: Axial computed tomography images of the chest without intravenous contrast. All CT scans at this facility use at least one of these dose optimization techniques: automated exposure control; mA and/or kV adjustment per patient size (includes targeted exams where dose is matched to clinical indication); or iterative reconstruction. Coronal and sagittal reformatted images were created and reviewed. COMPARISON: A/P WO CT ABD/PEL W/O 09/09/2014 6:48 PM FINDINGS: Thyroid: Focal calcification located in the thyroid bed. The thyroid gland appears to have been resected. Small focal calcification next to the upper esophagus best seen on series 2 image 9. No associated soft tissue mass. This measures about 4.6 mm in size. Lungs: No abnormal pulmonary infiltrate. Pleural space: No pleural effusion. No pneumothorax. Heart: The heart is of normal size. Mild anterior pericardial thickening. The maximum width is approximately 5 mm. moderate coronary calcification. Mediastinum: Hiatal hernia. Aorta: The ascending aorta measures 4.1 cm in AP length. The descending thoracic aorta at level of humberto measures 2.8 cm in length. Lymph nodes: Unremarkable. No enlarged lymph nodes. Bones/joints: The thoracic cage is intact. Anterior wedge deformity of T7 with loss of anterior height by about 10%. Soft tissues: Vertebral soft tissue mass is seen. IMPRESSION: 1. No acute findings. 2. 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 Recommend 6 month followup. EXAM: CT Abdomen and Pelvis Without Intravenous Contrast EXAM DATE/TIME: 03/01/2018 12:53 AM CLINICAL HISTORY: 72 years old, female; Pain; Abdominal pain; Epigastric; Sternal or substernal pain; Additional info: Epigastric pain radiating to the back/dysphagia TECHNIQUE: Axial computed tomography images of the abdomen and pelvis without intravenous contrast. All CT scans at this facility use at least one of these dose optimization techniques: automated exposure control; mA and/or kV adjustment per patient size (includes targeted exams where dose is matched to clinical indication); or iterative reconstruction. Coronal and sagittal reformatted images were created and reviewed. COMPARISON: A/P WO CT ABD/PEL W/O 09/09/2014 6:48 PM FINDINGS: Lower thorax: Hiatal hernia. ABDOMEN: Liver: Normal. No mass. Gallbladder and bile ducts: Normal. No calcified stones. No ductal dilation. Pancreas: Fatty infiltration of the pancreas. No dilatation of the pancreatic duct. Spleen: Normal. No splenomegaly. Adrenals: Normal. No mass. Kidneys and ureters: Right renal cortical cysts. The cysts measures 1.8 cm in greatest dimension and has a density of 25 Hounsfield units. Subtle hyperdensity density located in the right lower lobe calyx which is nonobstructing.this may represent a small kidney stone. No hydronephrosis. The left kidney is of normal size and appearance. No hydronephrosis or nephrolithiasis. Stomach and bowel: No bowel obstruction. Mild diverticular changes involving the sigmoid colon. No evidence of acute diverticulitis. No abnormal bowel wall thickening. Appendix: No evidence of appendicitis. PELVIS: Bladder: Unremarkable as visualized. Reproductive: Unremarkable as visualized. ABDOMEN and PELVIS: Intraperitoneal space: Normal. No free air. No significant fluid collection. Bones/joints: No acute fracture. No dislocation. Soft tissues: Cutaneous surgical clips are noted in the right upper quadrant. Vasculature: Calcification of the abdominal aorta and iliac artery. Lymph nodes: Normal. No enlarged lymph nodes. Other findings: The current glands are normal in appearance. IMPRESSION: 1. No acute findings. The previously noted stones located and in the left ureterovesical junction has cleared. No hydronephrosis is seen. 2. No evidence of bowel obstruction. Diverticular changes involving the sigmoid colon. No evidence of acute diverticulitis. No abnormal bowel wall thickening. COMMENT: Consistent with the [employer]'s Incidental Findings Committee Report (J Am Ion Radiol 2010): Unless the patient's specific circumstances suggest otherwise, any liver lesion 0.5 cm or less, any cystic kidney lesion less than 1.0 cm, and/or any adrenal lesion 1.0 cm or less not otherwise characterized in this report as possessing suspicious or indeterminate imaging features is/are highly likely to be benign and do not require follow-up imaging or biopsy. To contact [facility] with a general question: [facility] - [phone] For direct physician to physician contact: Physician Hotline - [phone] [facility] ([facility] Facility ID #[id number])
[2018-03-01 03:47] VITALS: BP 113/67
--- NOTE | 2018-03-01 08:12 | RAD ---
INDICATION: Chest pain COMPARISON: Chest x-ray dated November 19, 2015 TECHNIQUE: Single AP portable view of the chest was obtained. FINDINGS: Image quality is compromised due to the relative inferiority of a portable chest x-ray. The heart and mediastinum exhibit normal size and contour. The lungs are grossly clear. There is no evidence of a large pleural effusion. Visualized bones are normal for the patient's age. IMPRESSION: No radiographic evidence for acute cardiopulmonary abnormality on this portable chest x-ray. R0
== END 2018-03-01 03:46 | disposition home or self-care (01) ==
LOC: ED 22:32
DX: R07.89 Other chest pain (principal); E11.9 Type 2 diabetes mellitus without complications; R10.9 Unspecified abdominal pain; Z96.659 Presence of unspecified artificial knee joint
CPT/HCPCS: 36415; 71045; 71250; 74176; 80053; 83605; 83690; 84484; 85025; 85610; 85730; 93005; 96374; 96375; 96376; 99283; J1170; J2270; J2405

== ENCOUNTER 2018-03-05 10:38 | Inpatient (IN) | payer MEDICARE, BC ==
[2018-03-05 11:25] LABS: ABS Basophils 0 10^3/ul (0-0.2); ABS Eosinophils 0.7 10^3/ul (0-0.6); ABS Lymphocytes 1.7 10^3/ul (1.0-4.8); ABS Monocytes 0.4 10^3/ul (0-0.8); ABS Neutrophils 3.1 10^3/ul (1.5-7.7); ABS Nucleated RBC 0 10^3/ul; Eosinophil % 11.9 % (0-6); Hematocrit 34 % (35-47); Hemoglobin 11.4 g/dl (12.0-16.0); Lymphocyte % 28.9 % (25-47); Mean Corpuscular HGB Conc 34 g/dl (31-36); Mean Corpuscular Hemoglobin 29 pg (27-31); Mean Corpuscular Volume 87 fL (80-97); Mean Platelet Volume 6.9 fL (7.4-10.4); Nucleated Red Blood Cells % 0; Platelet Count 301 10^3/ul (150-450); Red Cell Distribution Width 14 % (10.5-15); White Blood Count 5.9 10^3/ul (3.5-10.8)
[2018-03-05 11:43] LABS: EGFR Non-African American 19.2 (>60)
[2018-03-05] MEDS ORDERED: Al Hydrox/Mg Hydrox/Simet LIQ* 30 ML UDC PO ONE (12:06)
[2018-03-05] MEDS ORDERED: Lidocaine 2% VISCOUS* 15 ML UDC PO ONE (12:06)
--- NOTE | 2018-03-05 12:22 | ED ---
Abdominal Pain/Female - HPI Summary HPI Summary: A 73 y/o female presents to the ED c/o abd pain, specifically epigastric pain, since 02/28/2018. On 02/28/2018 she was in the ED for her pain, was referred to Dr. [facility], where she went today and was referred back to the ED. She rates her pain as 10/10. Dr. Esparza wants her to get another CT today, be admitted and get an endoscopy tomorrow. She c/o trouble eating and drinking without vomiting. She also c/o nausea and coughing clear phlegm. She denies diarrhea, Fever, Chills, Erythema (eyes), Sore throat, Chest pain, Shortness of Breath, Dysuria, Hematuria, Myalgia, Edema, Rash and Dizziness. She has a Hx of GERD, IDDM, Thrush, is currently in stage 4 renal failure and has thyroid problems. - History of Current Complaint Chief Complaint: EDAbdPain Stated Complaint: ABD PAIN/VOMITTING Time Seen by Provider: 03/05/18 11:41 Hx Obtained From: Patient, Family/Internet Manager Onset/Duration: Gradual Onset, Lasting Days Timing: Constant Severity Initially: Severe Severity Currently: Severe Pain Intensity: 10 Aggravating Factor(s): Other: - coughing Associated Signs and Symptoms: Positive: Cough, Nausea, Vomiting Allergies/Adverse Reactions: Allergies Allergy/AdvReac Type Severity Reaction Status Date / Time etanercept [From Enbrel] Allergy tendonitis Verified 03/05/18 10:46 in knees piroxicam [From Feldene] Allergy Dizziness Verified 03/05/18 10:46 Home Medications: Home Medications Aspirin EC TAB* [Ecotrin EC Low Dose 81 MG*] 81 mg PO DAILY 03/05/18 [History Confirmed 03/05/18] Candesartan Cilexetil [Atacand] 4 mg PO DAILY 03/05/18 [History Confirmed ] Clotrimazole SEEMA* [Mycelex SEEMA*] 10 mg SL .FIVE TIMES A DAY 03/05/18 [ History Confirmed 03/05/18] Cranberry Fruit Extract [Cranberry] 8,400 mg PO DAILY 03/05/18 [History Confirmed 03/05/18] D-Mannose And Cranactin 1 cap PO DAILY 03/05/18 [History Confirmed 03/05/18] Diclofenac 1% GEL (NF) [Voltaren 1% GEL (NF)] 1 applic TOPICAL BID PRN 03/05/18 [History Confirmed 03/05/18] Fesoterodine (NF) [Toviaz (NF)] 8 mg PO DAILY 03/05/18 [History Confirmed ] Glucosa Pena 2Kcl/Chondroitin Pena [Glucosamine & Chondroitin Cap] 1 cap PO DAILY [History Confirmed 03/05/18] Iron-Vitamin C 65/125(Nf) [Vitron-C (NF)] 1 tab PO DAILY 03/05/18 [History Confirmed 03/05/18] L. Acidophilus/Pectin, [place] [Acidophilus Capsule] 1 cap PO DAILY 03/05/18 [ History Confirmed 03/05/18] Metoprolol Succinate XL TAB* [Toprol XL TAB*] 12.5 mg PO DAILY 03/05/18 [ History Confirmed 03/05/18] Multivitamins/Minerals TAB* [Theragran/minerals TAB*] 1 tab PO DAILY 03/05/18 [ History Confirmed 03/05/18] [id number]-6-[id number] Ethyl Esters (NF) [Lovaza (NF)] 1 cap PO TID 03/05/18 [History Confirmed 03/05/18] Omeprazole CAP* [Prilosec CAP* 20 MG] 20 mg PO QAM 03/05/18 [History Confirmed 03/05/18] SitaGLIPtin (NF) [Januvia (NF)] 100 mg PO DAILY 03/05/18 [History Confirmed 09/15] Vitamin B Complex TAB* [B Complex-50*] 1 tab PO DAILY 03/05/18 [History Confirmed 03/05/18] glipiZIDE TAB.XL* [Glucotrol XL*] 5 mg PO BID 03/05/18 [History Confirmed ] PMH/Surg Hx/FS Hx/Imm Hx Endocrine/Hematology History: Reports: Hx Blood Transfusions, Hx Diabetes - type 2, Hx Thyroid Disease, Hx Anemia Cardiovascular History: Reports: Hx Hypertension Denies: Hx Pacemaker/ICD, Other Cardiovascular Problems/Disorders Respiratory History: Denies: Other Respiratory Problems/Disorders GI History: Reports: Hx Diverticulosis, Hx Gall Bladder Disease - gall bladder removed, Hx Gastroesophageal Reflux Disease, Hx Hiatal Hernia, Hx Ulcer, Other GI Disorders - difficulty swallowing does bother somewhat History: Reports: Hx Kidney Infection, Hx Kidney Stones - 1970's, Hx Renal Disease - PER DR PRASAD SHE HAS RENAL DISEASE, Other Problems/Disorders - incontinence Musculoskeletal History: Reports: Hx Arthritis, Hx Rheumatoid Arthritis, Hx Bursitis - right shoulder, Hx Fibromyalgia, Hx Orthopedic Injury - left total knee- 2011, Hx Osteoporosis, Other Musculoskeletal History - chronic pain Sensory History: Reports: Hx Cataracts - both eye, Hx Contacts or Glasses, Other Sensory Impairments - dentures Denies: Hx Hearing Aid Opthamlomology History: Reports: Hx Cataracts - both eye, Hx Contacts or Glasses , Other Sensory Impairments - dentures Neurological History: Denies: Other Neuro Impairments/Disorders Psychiatric History: Denies: Hx Panic Disorder - Cancer History Cancer Type, Location and Year: knee replacement Hx Chemotherapy: No Hx Radiation Therapy: No - Surgical History Surgery Procedure, Year, and Place: gall bladder, bilat total knee replacement , partial hysterectomy,t&a. lumbar spinal surgery 06/2016. , partial hysterectomy, 1978, [facility]. ,t&a as a child. lumbar spinal surgery 06/2016, [facility] Hx Anesthesia Reactions: No - Immunization History Date of Influenza Vaccine: 2017 Infectious Disease History: No Infectious Disease History: Reports: Hx Shingles - back in 1959 Denies: Hx of Known/Suspected MRSA, Traveled Outside the in Last 30 Days - Family History Known Family History: Positive: Diabetes Negative: Cardiac Disease - Social History Alcohol Use: Rare Alcohol Amount: social Hx Substance Use: No Substance Use Type: Reports: None Smoking Status (MU): Never Smoked Tobacco Review of Systems Negative: Fever, Chills Negative: Erythema Negative: Sore Throat Negative: Chest Pain Positive: Cough. Negative: Shortness Of Breath Positive: Abdominal Pain, Vomiting - trouble eating/drinking without vomiting, Nausea. Negative: Diarrhea Negative: dysuria, hematuria Negative: Myalgia, Edema Negative: Rash All Other Systems Reviewed And Are Negative: Yes Physical Exam - Summary Physical Exam Summary: Constitutional: Well-developed, Well-nourished, Alert. (-) Distressed Skin: Warm, Dry HENT: Normocephalic; Atraumatic Eyes: Conjunctiva normal Neck: Musculoskeletal ROM normal neck. (-) JVD, (-) Stridor, (-) Tracheal deviation Cardio: Rhythm regular, rate normal, Heart sounds normal; Intact distal pulses; The pedal pulses are 2+ and symmetric. Radial pulses are 2+ and symmetric. (-) Murmur Pulmonary/Chest wall: Effort normal. (-) Respiratory distress, (-) Wheezes, (-) Rales Abd: Soft, (+) exquisite epigastric tenderness, (-) Distension, (-) Guarding, (- ) Rebound Musculoskeletal: (-) Edema Lymph: (-) Cervical adenopathy Neuro: Alert, Oriented x3 Psych: Mood and affect Normal Triage Information Reviewed: Yes Vital Signs On Initial Exam: Initial Vitals Temp Pulse Resp BP Pulse Ox 97.1 F 70 16 159/74 100 03/05/18 10:41 03/05/18 10:41 03/05/18 10:41 03/05/18 10:41 03/05/18 10:41 Vital Signs Reviewed: Yes Diagnostics - Vital Signs Vital Signs Temp Pulse Resp BP Pulse Ox 03/05/18 10:41 97.1 F 70 16 159/74 100 - Laboratory Lab Results: Lab Results 03/05/18 03/05/18 03/05/18 Range/Units 11:14 11:14 11:14 WBC 5.9 (3.5-10.8) 10^3/ul RBC 3.90 L (4.00-5.40) 10^6/ul Hgb 11.4 L (12.0-16.0) g/dl Hct 34 L (35-47) % MCV 87 (80-97) fL MCH 29 (27-31) pg MCHC 34 (31-36) g/dl RDW 14 (10.5-15) % Plt Count 301 (150-450) 10^3/ul MPV 6.9 L (7.4-10.4) fL Neut % (Auto) 52.1 (38-83) % Lymph % (Auto) 28.9 (25-47) % [place] % (Auto) 6.5 (0-7) % Eos % (Auto) 11.9 H (0-6) % Baso % (Auto) 0.6 (0-2) % Absolute Neuts (auto) 3.1 (1.5-7.7) 10^3/ul Absolute Lymphs (auto) 1.7 (1.0-4.8) 10^3/ul Absolute Monos (auto) 0.4 (0-0.8) 10^3/ul Absolute Eos (auto) 0.7 H (0-0.6) 10^3/ul Absolute Basos (auto) 0 (0-0.2) 10^3/ul Absolute Nucleated RBC 0 10^3/ul Nucleated RBC % 0 Sodium 139 (135-145) mmol/L Potassium 3.9 (3.5-5.0) mmol/L Chloride 108 (101-111) mmol/L Carbon Dioxide 22 (22-32) mmol/L Anion Gap 9 (2-11) mmol/L BUN 28 H (6-24) mg/dL Creatinine 2.46 H (0.51-0.95) mg/dL Est GFR ( Amer) 23.2 (>60) Est GFR (Non-Af Amer) 19.2 (>60) BUN/Creatinine Ratio 11.4 (8-20) Glucose 213 H (70-100) mg/dL Lactic Acid 0.9 (0.5-2.0) mmol/L Calcium 9.8 (8.6-10.3) mg/dL Total Bilirubin 0.40 (0.2-1.0) mg/dL AST 11 L (13-39) U/L ALT 7 (7-52) U/L Alkaline Phosphatase 88 (34-104) U/L C-Reactive Protein 8.12 H (<8.01) mg/L Total Protein 6.7 (6.4-8.9) g/dL Albumin 3.6 (3.2-5.2) g/dL Globulin 3.1 (2-4) g/dL Albumin/Globulin Ratio 1.2 (1-3) Lipase 18 (11.0-82.0) U/L Result Diagrams: 03/05/18 11:14 03/05/18 11:14 Lab Statement: Any lab studies that have been ordered have been reviewed, and results considered in the medical decision making process. - CT Abdomen/pelvis CT Interpretation Completed By: Radiologist - There is circumferential wall thickening of the distal esophagus extending to the gastroesophageal junction. Neoplastic process in the distal esophagus should BE considered. Findings are similar to that seen on March 01, 2018 although no oral contrast was given and this is more difficult to visualize previously. No hepatic lesions are noted. No evidence of bowel obstruction is noted. This report has been reveiwed by the ED physician. Abdominal Pain Fem Course/Dx - Course Course Of Treatment: A 73 y/o female presents to the ED c/o abd pain, specifically epigastric pain, since 02/28/2018. On 02/28/2018 she was in the ED for her pain, was referred to [facility], where she went today and was referred back to the ED. Dr. Esparza wants her to get another CT today, be admitted and get an endoscopy tomorrow. Her CT abdomen/pelvis revealed :here is circumferential wall thickening of the distal esophagus extending to the gastroesophageal junction. Neoplastic process in the distal esophagus should BE considered. Findings are similar to that seen on March 01, 2018 although no oral contrast was given and this is more difficult to visualize previously. No hepatic lesions are noted. No evidence of bowel obstruction is noted. Lab results were obtained. The patient will be admitted to [facility]. Dx: abdominal pain. - Diagnoses Provider Diagnoses: Abdominal pain - Provider Notifications Discussed Care Of Patient With: [facility] Esparza Time Discussed With Above Provider: 11:30 Instructed by Provider To: Other - Pt was seen by Dr. Esparza today. He suggests direct admission for the pt. He wants a CT today and an endoscopy tomorrow. Discharge - Sign-Out/Discharge Documenting (check all that apply): Patient Departure - Admit - Discharge Plan Condition: Fair Disposition: ADMITTED TO [facility] - Attestation Statements Document Initiated by Scribe: Yes Documenting Scribe: Mark Coats Provider For Whom Scribe is Documenting (Include Credential): Lionel Rogel MD Scribe Attestation: Mark Adasm, scribed for Lionel Rogel MD on 03/05/18 at 1700. Consult Consult: 12:15- Pt will be admitted to [facility].
[2018-03-05] MEDS ORDERED: Ondansetron INJ* 2 MG/ML VIAL IV PRN (14:46)
[2018-03-05] MEDS ORDERED: Morphine INJ* 4 MG/ML 1 ML SYRINGE (NEW SYRINGE VERSION) IV PRN (14:46)
[2018-03-05] MEDS ORDERED: Dextrose 50% Syringe 50 ML* 25 GM/50 ML SYRINGE IV PUSH PRN (15:03)
[2018-03-05 15:35] LABS: Urine Appearance Clear; Urine Blood Negative (Negative); Urine Color Straw; Urine Ketones Negative (Negative); Urine Protein Negative (Negative); Urine Specific Gravity 1.006 (1.010-1.030); Urine Urobilinogen Negative (Negative)
[2018-03-05] MEDS ORDERED: Morphine VIAL* 4 MG/ML VIAL (1 ml vial) IV PRN (15:59)
--- NOTE | 2018-03-05 16:14 | CONS ---
CONSULTATION REPORT: DATE OF CONSULT: 03/05/18 REQUESTING PHYSICIAN: Emergency Room, Dr. Vu. INDICATION: Difficulty swallowing. NARRATIVE: Mrs. Espino is a very pleasant 72-year-old female who had been in our GI office this morning for a visit with Dr. Esparza. She was having extreme pain at that time and was referred to the emergency room for further evaluation. She does have a history of diabetes and chronic kidney disease. She does have a shunt that had been placed in anticipation of hemodialysis in the future. She states that her symptoms had been going on for a while, however became very severe approximately 3 to 4 weeks ago. She has mid epigastric pain after eating pretty much anything; last night was a severe episode where she had some apple sauce and it felt like her esophagus totally closed up. She was able to eat a normal meal the night before. In the office, the pain according to her was greater than 10/10, now it is much better. It may be a 1 to 2/10. She is on omeprazole 20 mg a day. She did have an upper endoscopy with Dr. Low approximately a year ago. It revealed a fairly widely patent Schatzki's ring. Biopsies were taken for eosinophilic esophagitis. She denies any blood in her stool. She has lost a little bit of weight. PAST MEDICAL HISTORY: Significant for diabetes, hypertension, hypercholesterolemia, dysphagia, chronic kidney disease stage 4. PAST SURGICAL HISTORY: Includes spinal stenosis surgery, cholecystectomy, hysterectomy. FAMILY HISTORY: Significant for colorectal cancer, diabetes, coronary artery disease, colon cancer. No esophageal malignancies in the family. SOCIAL HISTORY: She denies any tobacco. Rare alcohol. No caffeine. REVIEW OF SYSTEMS: Review of systems 12 systems were reviewed other than that mentioned in the HPI were unremarkable. PHYSICAL EXAM: Temperature is 97.1, blood pressure is 159/74, O2 sat is 100%, respiratory rate of 16, pulse of 70. General: Elderly-appearing female. No apparent distress, lying flat in bed, alert, oriented, pleasant, fluent. HEENT : Mucous membranes are moist without lesions, ulcers, or exudate. Neck is supple. Trachea is midline. Head is normocephalic, atraumatic. Heart: Regular rate and rhythm. No murmurs, rubs, or gallops. Lungs: Clear to auscultation bilaterally. No wheezes, rales, or rhonchi. Abdomen: Positive bowel sounds, soft, slightly distended. Mild epigastric pain, however, otherwise, the rest of her abdominal exam was unremarkable. No hepatosplenomegaly was palpated. Lymph: No supraclavicular or cervical lymphadenopathy. Skin: Warm and dry. No rashes or ulcers. DIAGNOSTIC STUDIES/LAB DATA: Labs, of note, white count is 5.9, hemoglobin is 11.4, platelets of 301. Chemistry, BUN is 28, creatinine is 2.46, lactic acid is 0.9. AST is 11, ALT is 7. She does have a CT abdomen and pelvis that was just performed, which revealed distal esophageal thickening extending to the GE junction. ASSESSMENT AND PLAN: This is a pleasant 72-year-old female with severe epigastric pain that has improved. She also dysphagia with both solids and liquids and a CT showing distal esophageal circumferential thickening. She does need an upper endoscopy. She is being admitted to the hospital right now. She is currently in the emergency room. Her first troponin was normal. We will make arrangements for an EGD tomorrow for her further evaluation of her esophagus. [id number]/[facility] #: [id number] [facility]
[2018-03-05] MEDS: Metoprolol Succinate XL TAB* 25 MG PO SCH (16:43)
[2018-03-05] MEDS: Insulin LISPRO* 1 UNITS UNIT SUBCUT SCH (17:55)
[2018-03-05] MEDS: Atorvastatin* 10 MG TAB PO SCH (20:08)
[2018-03-05] MEDS: Clotrimazole TROCHE* 10 MG TROCHE PO SCH ×2 (20:09→21:58)
--- NOTE | 2018-03-05 21:02 | HP ---
AMENDED REPORT NOW INCLUDES DESIGNATED COSIGNER CC: Dr. Bazzi * HISTORY AND PHYSICAL: DATE OF ADMISSION: 03/05/18 PRIMARY CARE PROVIDER: Dr. Bazzi. PROVIDER: Shabnam Rg NP ATTENDING PHYSICIAN: Dr. Tonny Lezama * (dictated by Shabnam Rg NP). CHIEF COMPLAINT: Abdominal pain and dysphagia. HISTORY OF PRESENT ILLNESS: This is a 72-year-old female with a past medical history of CKD, stage 4, with recent fistula creation; diabetes, on home insulin ; GERD; kidney stones; hypertension, who presented to the ED with complaints of epigastric and right-sided abdominal pain for the past 10 days associated with what feels like "esophagus tightening." The patient reports that she has had episodes of dysphagia and associated severe abdominal pain for the past 10 days. When she takes a sip, she feels like her esophagus tightens and she cannot get the liquid to go down. If she coughs, the liquid comes back up. This is also associated with coughing clear phlegm, sometimes with copious amounts that would fill her hand. These episodes are also associated with abdominal pain that is in the epigastric to upper right quadrant region and also radiates to her right shoulder blade. She reports being unable to clear her throat or burp. She was seen for similar abdominal pain last week in the ED and workup at that time did not reveal an acute cause. At that time, she was referred to GI and had an appointment with Dr. Esparza today. She was seen in his office and he was concerned due to her severe ongoing pain. Specifically , he was concerned that she might have atypical chest pain or uremia, or a yet unidentified GI cause. Dr. Esparza also recommended she undergo a repeat CT of the abdomen and pelvis today. Upon presenting to the ED today, the patient denied shortness of breath, chest pain, N/V, diarrhea or constipation, fever, chills, dysuria, dizziness, headache. At the time of my exam, she was not experiencing any abdominal pain at rest, but did have RUQ/epigastric tenderness to palpation. She had an initial troponin of 0.0, which will be trended. Her CKD appears to be at her recent baseline. Her creatinine was 2.46 today and has been in the 2.2 to 2.7 range since the beginning of January. Her BUN is 28 today, which is lower than she has been for the past month where she has had BUN of 35 to 41. The patient underwent an abdominal/pelvis CT today, which demonstrated wall thickening of the distal esophagus extending to the gastroesophageal junction and it was recommended that these results be correlated with an upper GI examination/endoscopy. Of note, her prior abdomen and pelvis CT did not mention this finding. No oral contrast was given in the previous CT and it was suggested that this might be more difficult to visualize. The hospitalist team was asked to admit this patient for further GI workup. She has been evaluated by Dr. Bazzi with GI and will undergo an upper endoscopy tomorrow. PAST MEDICAL HISTORY: CKD, stage 4, with fistula placement 2 weeks ago; type 2 diabetes, on home insulin; hypothyroidism; anemia, requiring transfusions; hypertension; GERD; kidney stone. PAST SURGICAL HISTORY: Gallbladder removal, bilateral total knee replacement, T and A, lumbar spinal surgery, partial hysterectomy. HOME MEDICATIONS: 1. Multivitamin/mineral tab, 1 tab p.o. daily. 2. Diclofenac 1% gel 1 application topical b.i.d. p.r.n. 3. Insulin glargine 10 to 20 units subcu q.a.m. 4. Glucosamine and chondroitin cap, 1 cap p.o. daily. 5. Lovaza/omega-3 acids 1 cap p.o. daily. 6. Atacand 4 mg p.o. daily. 7. Simvastatin 20 mg p.o. at bedtime. 8. Metoprolol succinate XL 12.5 mg p.o. daily. 9. Iron/vitamin C 1 tab p.o. daily. 10. Amitriptyline 50 mg p.o. at bedtime. 11. Acidophilus 1 cap p.o. daily. 12. Aspirin 81 mg p.o. daily. 13. Mannose and Cranactin 1 cap p.o. daily. 14. Vitamin B complex 1 tab p.o. daily. 15. Januvia 100 mg p.o. daily. 16. Cranberry fruit extract 8400 mg p.o. daily. 17. Glipizide tab XL 5 mg p.o. b.i.d. 18. Synthroid 100 mcg p.o. q.a.m. 19. Fesoterodine 8 mg p.o. daily. 20. Omeprazole 80 mg p.o. q.a.m. 21. Clotrimazole eve 10 mg sublingual 5 times a day. ALLERGIES: ETANERCEPT from ENBREL and PIROXICAM from FELDENE. FAMILY HISTORY: The patient has no family history of heart disease. The patient's father had diabetes. The patient's father and brother had cancer. Her mother of a blood clot postoperatively in her 40s. SOCIAL HISTORY: The patient does not smoke cigarettes or drink alcohol. The patient would like to be a full code. The patient's medical decision maker will be her son, Jonatan Espino. REVIEW OF SYSTEMS: I performed a 14-point review of systems. All the pertinent positives and negatives are mentioned in the history of present illness. The remaining review of systems is negative. PHYSICAL EXAMINATION GENERAL APPEARANCE: The patient is alert, pleasant, and appears to be in no acute distress. She is pale. VITAL SIGNS: 97.1, heart rate 70, BP 159/74, respiratory rate 16, pulse ox 100 % on room air. HEENT: Normocephalic, atraumatic. Pupils are equal, round, and reactive to light and accommodation. Extraocular movements are intact. NECK: Supple. No lymphadenopathy noted. No JVD appreciated. RESPIRATORY: No accessory muscle use. Lungs are clear to auscultation. Normal work of breathing. CARDIAC: Regular rate and rhythm. S1 and S2 present. No murmurs, rubs, or gallops heard. ABDOMEN: Soft and nondistended. There are bowel sounds x4. The patient demonstrates right upper quadrant tenderness to palpation as well as epigastric tenderness. No rebound or guarding. EXTREMITIES: No lower extremity edema. DP and PT pulses are 2+ and symmetric. Fistula in LUE. MUSCULOSKELETAL: No clubbing or cyanosis noted. The patient exhibited 5/5 strength in all 4 extremities. NEURO: The patient is alert and oriented x3. PSYCH: The patient is calm and cooperative. SKIN: The are no rashes or abnormalities seen. DIAGNOSTIC STUDIES/LAB DATA: White blood cell count 5.9, RBC 3.9, hemoglobin 11.4, hematocrit 34, MCV 87, MCH 29, MCHC 34, RDW 14, platelet count 301, MPV 6.9, neutrophils 52.1, lymph percent 28.9, mono percent 6.5, eosinophil percent 11.9. Sodium 139, potassium 3.9, chloride 108, carbon dioxide 22, BUN 28, creatinine 2.46, glucose 213, lactic acid 0.9, calcium 9.8. Total bili 0.4, AST 11, ALT 7, alk phos 88. Troponin 0. C-reactive protein 8.12, total protein 6.7, albumin 3.6, globulin 2.1, lipase 18. Diagnostics: The patient underwent a repeat CT of the chest, abdomen, and pelvis today, which demonstrated a circumferential wall thickening of the distal esophagus extending to the gastroesophageal junction, neoplastic process in the distal esophagus should be considered. Findings are similar to what was seen on 03/01/18, although no oral contrast was given at this time and was more difficult to visualize previously. Previous report did not mention this finding. No hepatic lesions noted. No evidence of bowel obstruction noted. The patient did have a CT of the chest, abdomen, and pelvis on 03/01/18, which demonstrated an anterior wedge compression fracture of T7 with minimal loss of height, no paravertebral soft tissue mass seen, laminectomy defects at L4 and L5 , no central canal stenosis. 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 No hydronephrosis was seen. Diverticular changes involving the sigmoid colon were visualized. No evidence of acute diverticulitis and at that time, no abnormal bowel wall thickening was reported. ASSESSMENT: The patient is a 72-year-old female with a past medical history significant for chronic kidney disease, diabetes, gastroesophageal reflux disease, hypertension, gallbladder removal, who presented to the ED with a 10- day history of episodic dysphagia and abdominal pain, who will be admitted to the hospitalist service for further GI workup of her dysphagia after CT demonstrated wall thickening of the distal esophagus. PLAN: 1. Dysphagia/abdominal pain. Differentials include esophageal stricture versus neoplastic process versus eosinophilic esophagitis versus achalasia. CT abdomen and pelvis demonstrated circumferential wall thickening of the distal esophagus extending to the gastroesophageal junction. GI has been consulted. Dr. Bazzi has seen the patient and plans for an endoscopy tomorrow. The patient will be on a clear diet for the rest of today and n.p.o. after midnight in anticipation of the procedure. Prior to the repeat CT was obtained, there was also concern that this could be an atypical chest pain. The patient's initial troponin was 0; however, we will continue to trend troponins. 2. GERD. Continue home Prilosec. 3. Hypertension. The patient is hypertensive to 160s to 170s in the ED in the setting of not taking her medications today. The patient will restart her home metoprolol and her candesartan is nonformulary, so we will substitute as appropriate. 4. CKD, stage 4. The patient's BUN and creatinine appeared to be at baseline. Her potassium is 3.9. The patient's presentation is not consistent with uremia. She has no itching and her nausea has been episodic along with dysphagia. 5. Diabetes. The patient's oral medications are on hold as the patient will be n.p.o. She will have q.6 hours fingersticks and lispro sliding scale. Once the patient is no longer n.p.o., can consider restarting her home glargine. 6. Hypothyroid. We will continue the patient's home Synthroid 100 mcg p.o. q.a.m. 7. Diet. The patient will have a clear diet until midnight and then will be n.p.o. after midnight for the procedure. 8. DVT prophylaxis. Subcu heparin. 9. Code status. Full code. 10. Disposition. Inpatient. Anticipate discharge home when medically stable. TIME SPENT: Time spent for this admission was 60 minutes and 35 minutes was spent with the patient discussing medications, past medical history, and events leading up to their arrival today and performing a physical exam. The case has been reviewed with the attending, Dr. Lezama, who agrees with the plan of care. SHABNAM RG, MEGHA [id number]/CPS #: [id number] MAR
[2018-03-05] MEDS: Heparin VIAL(*) 5000 UNITS/ML VIAL (FIVE THOUSAND) SUBCUT SCH (21:58)
[2018-03-06] MEDS: Insulin LISPRO* 1 UNITS UNIT SUBCUT SCH ×4 (00:31→18:09)
[2018-03-06] MEDS: Clotrimazole TROCHE* 10 MG TROCHE PO SCH ×5 (05:53→21:12)
[2018-03-06] MEDS: Levothyroxine TAB* 100 MCG TAB PO SCH (05:53)
[2018-03-06] MEDS: Heparin VIAL(*) 5000 UNITS/ML VIAL (FIVE THOUSAND) SUBCUT SCH ×3 (05:53→21:12)
[2018-03-06 08:28] LABS: ABS Basophils 0 10^3/ul (0-0.2); ABS Eosinophils 0.8 10^3/ul (0-0.6); ABS Lymphocytes 2.2 10^3/ul (1.0-4.8); ABS Monocytes 0.5 10^3/ul (0-0.8); ABS Neutrophils 2.4 10^3/ul (1.5-7.7); ABS Nucleated RBC 0 10^3/ul; Eosinophil % 13.4 % (0-6); Hematocrit 31 % (35-47); Hemoglobin 10.4 g/dl (12.0-16.0); Lymphocyte % 37.6 % (25-47); Mean Corpuscular HGB Conc 34 g/dl (31-36); Mean Corpuscular Hemoglobin 29 pg (27-31); Mean Corpuscular Volume 87 fL (80-97); Nucleated Red Blood Cells % 0.2; Platelet Count 236 10^3/ul (150-450); Red Blood Count 3.53 10^6/ul (4.00-5.40); Red Cell Distribution Width 14 % (10.5-15); White Blood Count 5.9 10^3/ul (3.5-10.8)
[2018-03-06] MEDS ORDERED: fentaNYL* 50 MCG/ML 2 ML VIAL (100 MCG VIAL) ONE (08:39)
[2018-03-06] MEDS ORDERED: Midazolam* 1 MG/ML 10 ML VIAL (10 MG) ONE (08:39)
[2018-03-06 08:44] LABS: EGFR Non-African American 20.6 (>60)
[2018-03-06] MEDS ORDERED: Valsartan TAB* 40 MG PO SCH (09:00)
[2018-03-06] MEDS ORDERED: Insulin GLARGINE(*) 1 UNITS UNIT SUBCUT SCH (09:00)
[2018-03-06] MEDS: Multivitamins/Minerals TAB PO SCH (11:27)
[2018-03-06] MEDS: Aspirin EC TAB* 81 MG TAB.EC PO SCH (11:27)
[2018-03-06] MEDS: Metoprolol Succinate XL TAB* 25 MG PO SCH (11:27)
[2018-03-06] MEDS: Omeprazole CAP* 20 MG PO SCH (11:27)
[2018-03-06] MEDS: Al Hydrox/Mg Hydrox/Simet LIQ* 30 ML UDC PO PRN ×3 (12:48→22:31)
--- NOTE | 2018-03-06 13:59 | PN ---
Subjective Date of Service: 03/07/18 Interval History: s/p EGD w/ dilatation without resistance. No masses seen. no fungus seen. No clear explanation for patients symptoms Pt relates that prior to the GI office visit the morning of admission that the daughter had tried several forceful hemilich manuever and pounding on the chest wo/ relief. She was reportedly quite tender (but only with very deep palpation) . Maalox seemed to help yesterday. Had some before lunch but almost immediately had symptoms again. Denies nausea or diarrhea or constipation. Occasional problems expelling burps. pressure in bottom of chest. Symptoms with both solids and liquids equally. Had a throat evaluation with ENT Dr. Santiago as an outpatient who thought he saw some fungus as so started on clotrimazole medication for that. Objective Active Medications: Al Hydrox/Mg Hydrox/Simethicone (Maalox Plus*) 30 ml PO Q6H PRN PRN Reason: INDIGESTION Last Admin: 03/06/18 12:48 Dose: 30 ml Aspirin (Aspirin Ec Tab*) 81 mg PO DAILY [facility] Last Admin: 03/06/18 11:27 Dose: 81 mg Atorvastatin Calcium (Lipitor*) 10 mg PO BEDTIME [facility] Last Admin: 03/05/18 20:08 Dose: 10 mg Clotrimazole (Mycelex Karma*) 10 mg PO FIVE TIMES DAILY [facility] Last Admin: 03/06/18 11:32 Dose: 10 mg Dextrose (D50w Syringe 50 Ml*) 12.5 gm IV PUSH .FOR FS < 60 - SS PRN PRN Reason: FS < 60 Heparin Sodium (Porcine) (Heparin Vial(*)) 5,000 units SUBCUT Q8HR [facility] Last Admin: 03/06/18 05:53 Dose: 5,000 units Insulin Human Lispro (Humalog*) 0 units SUBCUT Q6HR [facility]; Protocol Last Admin: 03/06/18 12:53 Dose: 1 units Levothyroxine Sodium (Synthroid Tab*) 100 mcg PO DAILY@0600 [facility] Last Admin: 03/06/18 05:53 Dose: 100 mcg Metoprolol Succinate (Toprol Xl Tab*) 12.5 mg PO DAILY [facility] Last Admin: 03/06/18 11:27 Dose: 12.5 mg Morphine Sulfate (Morphine Vial*) 2 mg IV Q4H PRN PRN Reason: PAIN - MILD Multivitamins/Minerals (Theragran/Minerals Tab*) 1 tab PO DAILY [facility] Last Admin: 03/06/18 11:27 Dose: 1 tab Omeprazole (Prilosec Cap*) 20 mg PO DAILY@0730 [facility] Last Admin: 03/06/18 11:27 Dose: 20 mg Ondansetron HCl (Zofran Inj*) 4 mg IV Q4H PRN PRN Reason: NAUSEA/VOMITING Valsartan (Diovan Tab*) 20 mg PO DAILY [facility] Last Admin: 03/06/18 11:29 Dose: 20 mg Vital Signs - 8 hr 03/06/18 03/06/18 03/06/18 08:00 09:41 11:19 Temperature 98.3 F 98.1 F Pulse Rate 78 61 Respiratory 18 14 18 Rate Blood Pressure 122/87 131/52 (mmHg) O2 Sat by Pulse 95 100 Oximetry Oxygen Devices in Use Now: None Appearance: NAD, anxious, talkative Eyes: No Scleral Icterus Ears/Nose/Mouth/Throat: NL Teeth, Lips, Gums, Mucous Membranes Moist Respiratory: Symmetrical Chest Expansion and Respiratory Effort, Clear to Auscultation Cardiovascular: NL Sounds; No Murmurs; No JVD, RRR Abdominal: NL Sounds; No Tenderness; No Distention, No Hepatosplenomegaly Extremities: No Edema, No Clubbing, Cyanosis Skin: No Rash or Ulcers, No Nodules or Sclerosis Neurological: Alert and Oriented x 3, NL Sensation, NL Muscle Strength and Tone Nutrition: Taking PO's Result Diagrams: 03/06/18 08:17 03/06/18 08:17 Additional Lab and Data: Laboratory Results - last 24 hr 03/06/18 03/06/18 03/06/18 00:27 05:35 08:17 WBC 5.9 RBC 3.53 L Hgb 10.4 L Hct 31 L MCV 87 MCH 29 MCHC 34 RDW 14 Plt Count 236 MPV 7.0 L Neut % (Auto) 40.7 Lymph % (Auto) 37.6 [place] % (Auto) 7.6 H Eos % (Auto) 13.4 H Baso % (Auto) 0.7 Absolute Neuts (auto) 2.4 Absolute Lymphs (auto) 2.2 Absolute Monos (auto) 0.5 Absolute Eos (auto) 0.8 H Absolute Basos (auto) 0 Absolute Nucleated RBC 0 Nucleated RBC % 0.2 Sodium Potassium Chloride Carbon Dioxide Anion Gap BUN Creatinine Est GFR ( Amer) Est GFR (Non-Af Amer) BUN/Creatinine Ratio Glucose POC Glucose (mg/dL) 112 H 117 H Calcium 03/06/18 03/06/18 03/06/18 08:17 12:11 17:45 WBC RBC Hgb Hct MCV MCH MCHC RDW Plt Count MPV Neut % (Auto) Lymph % (Auto) Assumption % (Auto) Eos % (Auto) Baso % (Auto) Absolute Neuts (auto) Absolute Lymphs (auto) Absolute Monos (auto) Absolute Eos (auto) Absolute Basos (auto) Absolute Nucleated RBC Nucleated RBC % Sodium 140 Potassium 4.6 Chloride 110 Carbon Dioxide 23 Anion Gap 7 BUN 23 Creatinine 2.31 H Est GFR ( Amer) 25.0 Est GFR (Non-Af Amer) 20.6 BUN/Creatinine Ratio 10.0 Glucose 134 H POC Glucose (mg/dL) 160 H 216 H Calcium 9.6 Assess/Plan/Problems-Billing Assessment: 72 yo female PMH CKD IV-V with recent fistula placement p/w sensation of odynophagia with "esophogeal" centricity, ?Schatsky Ring 1 year ago, and CT abdomen with concern for potential esophogeal thickening. s/p EGD 03/06 with no clear mass and no resistance to dilatation. #Dysphagia/Odynophagia - f/u GI recs - no clear etiology on EGD - continue PPI - continue Maalox Plus prn - have ordered barium Upper GI series, npo at midnight - will start diltiazem 60mg q6 for potential esophogeal spasm as etiology. could trial a TCA if fails. - continue clotrimazole #HTN - stop ARB given initiation of diltazem #CKD IV-V - stable, - recent fistula establishment -f/u with Dr. Bagley as outpatient. #HLD - continue statin #hypothyroidism - continue synthroid. CODE: FULL
[2018-03-06] MEDS: Diltiazem TAB* 60 MG PO SCH (16:53)
[2018-03-06] MEDS: Atorvastatin* 10 MG TAB PO SCH (21:11)
[2018-03-07] MEDS: Diltiazem TAB* 60 MG PO SCH ×5 (00:40→23:36)
[2018-03-07] MEDS: Insulin LISPRO* 1 UNITS UNIT SUBCUT SCH ×5 (00:40→23:37)
[2018-03-07] MEDS: Levothyroxine TAB* 100 MCG TAB PO SCH (05:50)
[2018-03-07] MEDS: Heparin VIAL(*) 5000 UNITS/ML VIAL (FIVE THOUSAND) SUBCUT SCH ×3 (05:50→21:56)
[2018-03-07] MEDS: Clotrimazole TROCHE* 10 MG TROCHE PO SCH ×5 (05:55→21:56)
[2018-03-07] MEDS: Aspirin EC TAB* 81 MG TAB.EC PO SCH (09:18)
[2018-03-07] MEDS: Omeprazole CAP* 20 MG PO SCH (09:18)
[2018-03-07] MEDS: Multivitamins/Minerals TAB PO SCH (09:20)
--- NOTE | 2018-03-07 14:15 | PRO ---
DATE: 03/06/18 - ROOM #[id number] REFERRING PHYSICIANS: Maru Bazzi; Willard aBgley; Silverio Esparza DO. * PROCEDURE: Upper gastrointestinal endoscopy and balloon dilation, EG junction at 39, progressively from 15 to 18 mm with no split observed. 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 Unexpectedly, however , she describes that she had a full meal Monday evening 03/04 with meat loaf, rice, a vegetable, and other items. She had seconds she proudly announces. That was all done by 6 p.m. At 9 p.m., she has some homemade applesauce and says she began having epigastric pain and it was severe. It lessened a little bit but she continued to have some pain through the night and did manage to get on the schedule at [facility] the next morning where she says she was in extreme pain around 10 a.m. She was sent to the emergency room by Dr Esparza. The pain lessened somewhere around the time of her arrival. She was comfortable since admission overnight and is in no pain whatsoever now. Other episodes like this have been occurring for a month or two. Preceding this she had unexplained sore throat for which she saw Dr Bazzi this summer. No antibiotic was given as it was felt to be viral. She did see the PA in the ENT office who told her of no specific diagnosis. saw her on Monday02/27/18 and prescribed clotrimazole lozenges 5 a day and the patient says that with that sore throat is getting better. A year ago, she had upper endoscopy investigating a complaint of dysphagia to solids. Dr Low encountered a mild Schatzki's ring and took random biopsies from the mid esophagus to rule out eosinophilic esophagitis. He did not describe furrowing or ringlet appearance. The patient was reporting difficulty with her teeth at that time. No dilation was done as the ring appeared quite mild. ENDOSCOPIST: Dr. Leblanc MEDICATIONS: Midazolam 4, fentanyl 50. FINDINGS: She is a generally healthy appearing older woman in no overt distress. She is a very enthusiastic historian knowing a fair number of medical terms. 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 ESOPHAGOGASTRODUODENOSCOPY: Larynx - narrow with no sign of monilia. Esophagus - easily entered and the mucosa is normal. The upper, mid, and lower esophagus with EG junction at 39. There are no erosions and no Neff's change. There is a minimal ring above a small hiatal hernia. There is no erythema or granularity. The hiatal hernia itself appears normal. Stomach - small hiatal hernia and then normal mucosa in the cardia, fundus body and antrum. There are no erosions or deformity. Duodenum - the pylorus, bulb, and second through fourth portions appear normal. Scope was brought back into the stomach and a TTS dilator inserted and then inflated across the EG junction to 15, 16.5, and 18 mm. Only the 18 mm inflation created any sense of resistance but there was no overt stretching or split at the ends. IMPRESSION: 1. Small hiatal hernia. 2. History of gastroesophageal reflux disease, on omeprazole. 3. Dysphagia - no anatomic reason seen for major dysphagia in anyone eating at a prudent rate. There was certainly nothing that would cause mechanical dysphagia for liquids. The history is atypical with low risk items seeming to induce pain after a complete meal had been tolerated fine (applesauce after a meat loaf). Barium swallow or motility studies may be helpful but the complaint remains atypical. [id number]/CPS #: [id number] MTDD
--- NOTE | 2018-03-07 17:44 | PN ---
Subjective Date of Service: 03/07/18 Interval History: Feels better, tolerated all her lunch, taking it slow. No sensation of pain s/p Upper GI series that showed nonspecific nondilation of the distal 1/3 of esophagus. Objective Active Medications: Al Hydrox/Mg Hydrox/Simethicone (Maalox Plus*) 30 ml PO Q6H PRN PRN Reason: INDIGESTION Last Admin: 03/06/18 22:31 Dose: 30 ml Aspirin (Aspirin Ec Tab*) 81 mg PO DAILY [facility] Last Admin: 03/07/18 09:18 Dose: 81 mg Atorvastatin Calcium (Lipitor*) 10 mg PO BEDTIME [facility] Last Admin: 03/06/18 21:11 Dose: 10 mg Clotrimazole (Mycelex Karma*) 10 mg PO FIVE TIMES DAILY [facility] Last Admin: 03/07/18 13:50 Dose: 10 mg Dextrose (D50w Syringe 50 Ml*) 12.5 gm IV PUSH .FOR FS < 60 - SS PRN PRN Reason: FS < 60 Diltiazem HCl (Cardizem Tab*) 60 mg PO Q6HR [facility] Last Admin: 03/07/18 12:12 Dose: 60 mg Heparin Sodium (Porcine) (Heparin Vial(*)) 5,000 units SUBCUT Q8HR [facility] Last Admin: 03/07/18 13:51 Dose: 5,000 units Insulin Human Lispro (Humalog*) 0 units SUBCUT Q6HR [facility]; Protocol Last Admin: 03/07/18 12:27 Dose: Not Given Levothyroxine Sodium (Synthroid Tab*) 100 mcg PO DAILY@0600 [facility] Last Admin: 03/07/18 05:50 Dose: 100 mcg Morphine Sulfate (Morphine Vial*) 2 mg IV Q4H PRN PRN Reason: PAIN - MILD Last Admin: 03/06/18 14:48 Dose: 2 mg Multivitamins/Minerals (Theragran/Minerals Tab*) 1 tab PO DAILY [facility] Last Admin: 03/07/18 09:20 Dose: Not Given Omeprazole (Prilosec Cap*) 20 mg PO DAILY@0730 [facility] Last Admin: 03/07/18 09:18 Dose: 20 mg Ondansetron HCl (Zofran Inj*) 4 mg IV Q4H PRN PRN Reason: NAUSEA/VOMITING Vital Signs - 8 hr 03/07/18 03/07/18 03/07/18 10:48 11:34 16:26 Temperature 98.6 F 98.5 F 97.3 F Pulse Rate 73 72 64 Respiratory 16 16 18 Rate Blood Pressure 122/57 123/67 118/62 (mmHg) O2 Sat by Pulse 100 98 99 Oximetry Oxygen Devices in Use Now: None Appearance: NAD Eyes: No Scleral Icterus, PERRLA Ears/Nose/Mouth/Throat: NL Teeth, Lips, Gums, Mucous Membranes Moist Neck: NL Appearance and Movements; NL JVP Respiratory: Symmetrical Chest Expansion and Respiratory Effort, Clear to Auscultation Cardiovascular: NL Sounds; No Murmurs; No JVD, RRR Abdominal: NL Sounds; No Tenderness; No Distention, No Hepatosplenomegaly Lymphatic: No Cervical Adenopathy Extremities: No Edema, - - fistula in left arm Skin: No Rash or Ulcers Neurological: Alert and Oriented x 3, NL Sensation, NL Muscle Strength and Tone Nutrition: Taking PO's Result Diagrams: 03/06/18 08:17 03/06/18 08:17 Additional Lab and Data: Laboratory Results - last 24 hr 03/06/18 03/06/18 03/07/18 17:45 23:59 05:22 POC Glucose (mg/dL) 216 H 224 H 172 H 03/07/18 12:17 POC Glucose (mg/dL) 141 H Assess/Plan/Problems-Billing Assessment: 72 yo female PMH CKD IV-V with recent fistula placement p/w sensation of odynophagia with "esophogeal" centricity, ?Schatsky Ring 1 year ago, and CT abdomen with concern for potential esophogeal thickening. s/p EGD 03/06 with no clear mass and no resistance to dilatation. #Dysphagia/Odynophagia - f/u GI recs, will send for outpatient f/u with Dr. Leblanc - no clear etiology on EGD - continue PPI - continue Maalox Plus prn - barium Upper GI series, with distal 1/3 esophagus nonspecific nondilation. - will continue diltiazem 60mg q6 for potential esophogeal spasm as etiology. seems like it has helped. - continue clotrimazole #HTN - stop ARB given initiation of diltazem #CKD IV-V - stable, - recent fistula establishment -f/u with Dr. Bagley as outpatient. #HLD - continue statin #hypothyroidism - continue synthroid. CODE: FULL
[2018-03-07] MEDS ORDERED: Dextrose 50% Syringe 50 ML* 25 GM/50 ML SYRINGE IV PUSH PRN (18:32)
[2018-03-07] MEDS ORDERED: Insulin LISPRO* 1 UNITS UNIT SUBCUT ONE (18:32)
[2018-03-07] MEDS: Atorvastatin* 10 MG TAB PO SCH (21:55)
[2018-03-08] MEDS: Al Hydrox/Mg Hydrox/Simet LIQ* 30 ML UDC PO PRN (04:48)
[2018-03-08] MEDS: Levothyroxine TAB* 100 MCG TAB PO SCH (06:25)
[2018-03-08] MEDS: Diltiazem TAB* 60 MG PO SCH ×2 (06:25→12:12)
[2018-03-08] MEDS: Clotrimazole TROCHE* 10 MG TROCHE PO SCH ×3 (06:25→13:35)
[2018-03-08] MEDS: Heparin VIAL(*) 5000 UNITS/ML VIAL (FIVE THOUSAND) SUBCUT SCH ×2 (06:26→13:35)
[2018-03-08] MEDS: Insulin LISPRO* 1 UNITS UNIT SUBCUT SCH ×2 (07:09→12:12)
[2018-03-08] MEDS: Omeprazole CAP* 20 MG PO SCH (07:33)
[2018-03-08] MEDS: Multivitamins/Minerals TAB PO SCH (07:33)
[2018-03-08] MEDS: Aspirin EC TAB* 81 MG TAB.EC PO SCH (07:34)
[2018-03-08 11:43] VITALS: BP 117/51
--- NOTE | 2018-03-09 10:41 | DS ---
DISCHARGE SUMMARY: DATE OF ADMISSION: 03/05/18 DATE OF DISCHARGE: 03/08/18 ADMITTING PROVIDER: Shabnam Machado NP PRIMARY CARE PHYSICIAN: Dr. Maru Bazzi. CONSULTING BASEBALL PLAYER: Dr. Leblanc. ATTENDING PHYSICIAN ON THE DAY OF DISCHARGE: José Miguel Joyce MD CHIEF COMPLAINT: Abdominal pain, dysphagia, substernal chest pressure. PRINCIPAL DIAGNOSES: Suspected esophageal spasms versus dysmotility, possibly as a result of medication side effects; abdominal pain in the setting of attempted Heimlich maneuver at home. HISTORY OF PRESENT ILLNESS AND HOSPITAL COURSE: Alan Espino is a 72-year-old female with past medical history of chronic kidney disease, stage 4, who recently had a left forearm fistula created, insulin-dependent diabetes mellitus , GERD, kidney stones, hypertension. Please see [facility] Shabnam Machado for full details; but in summary, the patient has had episodes of dysphagia, centered in the center of the substernal area, most severely associated after eating both liquids and solids and lasting for about 10 to 14 days. She feels like her "esophagus tightens" and cannot get the fluid or liquid to go down. She had some troubles burping. She had a lot of clear phlegm. These sometimes are associated with abdominal pain in the epigastric, radiating to the right upper quadrant, sometimes to the right shoulder blade. She presented to the ED last week and had a noncontrast CT scan, which was unrevealing, was referred to GI and had appointment with Dr. Esparza. She then initially state this, but the morning of that appointment, because of the severe pain, she had her daughter try to perform a Heimlich maneuver; and when she later saw Dr. Esparza , she had severe tenderness to palpation at the area of deep palpation but not moderate palpation and he referred her to the emergency room for further testing. She had a CT of the chest, abdomen, and pelvis here at this time with p.o. but no IV contrast, and this time there was concern for circumferential wall thickening of the distal esophagus extending to the gastroesophageal junction. A neoplastic process in the distal esophagus should be considered. Findings were similar to that of March 01, although with no oral contrast given at that time, it was more difficult to visualize previously. The patient was referred to GI service and EGD was performed on 03/06/18. This demonstrated a small hiatal hernia. There were no erosions or Neff's changes. There was a minimal ring above the small hiatal hernia. No erythema or granularity. The EG junction was dilated with no sense of resistance, but there was no overt stretching or slit at the ends. In summary, there was not a clear anatomic reason for the dysphagia. A barium swallow was performed on 11/15, which demonstrated nonspecific non-distention of the distal third of the esophagus. Corresponding to areas of thickening of the esophagus and the recent CT scan, the diagnosis included Neff's esophagus or neoplastic process or other benign or malignant etiologies. This provider had concern for possible esophageal spasms as one of the potential etiologies and she was started on diltiazem 60 mg q.6 hours. She did seem to have improvement in her symptoms. This was able to tolerate the next 3 meals while eating slowly. She did wake up with some chest discomfort after a restless night, unable to sleep, and did bring up one of her pills. She is being recommended to follow up with Dr. Leblanc for potential esophageal manometry studies. Also recommending that her Toviaz, a muscarinic receptor antagonist, which sometimes can cause reductions in GI motility and may increase the risk of gastric retention, I am recommending that be stopped, especially in the setting of her amitriptyline use. Also, medication change of her Januvia given her renal function from 100 mg to 25 mg daily is being recommended. Her metoprolol is being stopped and close observation of her blood pressure is recommended given she is also on candesartan at home. She is also being discharged with Maalox Plus and her home omeprazole. Her creatinine was at its recent baseline between 2.3 and 2.4. She had an EKG with no ischemic changes. Troponins were negative. She was not particularly uremic. On the day of discharge, BUN was 23. CRP was 8.1. She was afebrile. The patient had also recently followed up with ENT, Dr. Santiago, who had visualized the esophagus and started the patient on clotrimazole troches. There is no fungus seen on the EGD report. DISCHARGE MEDICATIONS: Include: 1. Aspirin 81 mg daily. 2. Clotrimazole 10 mg sublingual q.5 minutes. 3. Diltiazem 60 mg p.o. q.6 hours (new). 4. Levothyroxine 100 mcg p.o. daily. 5. Multi tablet 1 tab p.o. daily. 6. Omeprazole 20 mg p.o. q.a.m. 7. Simvastatin 20 mg p.o. at bedtime. 8. Maalox Plus 30 mL p.o. q.6 hours p.r.n. 9. Amitriptyline 50 mg p.o. at bedtime. 10. Candesartan 4 mg p.o. daily. 11. Cranberry fruit extract 8400 mg p.o. daily. 12. D-Mannose and Cranactin 1 capsule p.o. daily. 13. Diclofenac topical b.i.d. p.r.n. 14. Glipizide 5 mg p.o. b.i.d. 15. Glucosamine and chondroitin 1 capsule p.o. daily. 16. Lantus 10 to 20 units q.a.m. 17. Vitron-C 1 tab p.o. daily. 18. Acidophilus capsule 1 p.o. daily. 19. Lzrhy-6-nfdf ethyl esters 1 capsule (Lovaza) 1 capsule p.o. t.i.d. 20. Januvia 25 mg p.o. daily (reduced from former 100 mg daily given her reduced kidney function). 21. Vitamin B capsule 1 tab p.o. daily. DISCHARGE DIET: Heart healthy, carbohydrate consistent, unchanged. The patient was encouraged to eat relatively slowly while she is still having these symptoms. ACTIVITY LEVEL: No restrictions. FOLLOWUP: Please follow up with Dr. Maru Bazzi within [address] Morro Leblanc within 2 to 4 weeks. She was recommended to monitor her blood pressures daily recording in logbook, take to her next office visit. She also should follow up as originally scheduled with Dr. Bagley. TIME SPENT ON DISCHARGE: 40 minutes. [id number]/[facility] #: [id number] [facility]
== END 2018-03-08 18:05 | disposition home or self-care (01) | DRG 392 ==
LOC: ED 10:38 → MEDTELE 14:46
PROVIDERS: ADMIT Internal Medicine; ATTEND Internal Medicine
PROC: 0D748ZZ Dilation of Esophagogastric Junction, Via Natural or Artificial Opening Endoscopic (ICD-10-PCS; principal; 2018-03-06)
DX: K22.4 Dyskinesia of esophagus (principal); N18.4 Chronic kidney disease, stage 4 (severe); B37.89 Other sites of candidiasis; K21.9 Gastro-esophageal reflux disease without esophagitis; E11.22 Type 2 diabetes mellitus with diabetic chronic kidney disease; Z96.653 Presence of artificial knee joint, bilateral; I12.9 Hypertensive chronic kidney disease with stage 1 through stage 4 chronic kidney disease, or unspecified chronic kidney disease; K57.90 Diverticulosis of intestine, part unspecified, without perforation or abscess without bleeding; M06.9 Rheumatoid arthritis, unspecified; G89.29 Other chronic pain; E03.9 Hypothyroidism, unspecified; E11.36 Type 2 diabetes mellitus with diabetic cataract; M81.0 Age-related osteoporosis without current pathological fracture; M19.90 Unspecified osteoarthritis, unspecified site; K44.9 Diaphragmatic hernia without obstruction or gangrene; E78.5 Hyperlipidemia, unspecified; T50.905A Adverse effect of unspecified drugs, medicaments and biological substances, initial encounter; R10.9 Unspecified abdominal pain; M79.7 Fibromyalgia; Z90.711 Acquired absence of uterus with remaining cervical stump; Z88.6 Allergy status to analgesic agent; Z88.8 Allergy status to other drugs, medicaments and biological substances; Z87.442 Personal history of urinary calculi; Z90.49 Acquired absence of other specified parts of digestive tract; Z86.19 Personal history of other infectious and parasitic diseases; Z85.830 Personal history of malignant neoplasm of bone; Z83.3 Family history of diabetes mellitus; Z82.49 Family history of ischemic heart disease and other diseases of the circulatory system; Z80.0 Family history of malignant neoplasm of digestive organs; Y92.009 Unspecified place in unspecified non-institutional (private) residence as the place of occurrence of the external cause; Z79.82 Long term (current) use of aspirin; Z79.4 Long term (current) use of insulin
CPT/HCPCS: 36415; 74176; 74246; 80048; 80053; 81003; 82947; 83605; 83690; 84484; 85025; 86140; 93005; 99156; 99284; A9270-GY; J1644; J2250; J2270; J3010

== ENCOUNTER 2020-01-07 15:06 | Observation (INO) ==
[2020-01-07] MEDS ORDERED: Diltiazem IV push/loading dose 5 MG/ML 5 ML vial (25 mg) IV SLOW PU ONE (16:00)
[2020-01-07 16:18] LABS: ABS Eosinophils 0.1 10^3/ul (0-0.6); ABS Lymphocytes 1.1 10^3/ul (1.0-4.8); ABS Monocytes 0.4 10^3/ul (0-0.8); ABS Neutrophils 5.1 10^3/ul (1.5-7.7); Eosinophil % 2.1 %; Hematocrit 40 % (35-47); Hemoglobin 14.1 g/dL (12.0-16.0); Lymphocyte % 15.7 %; Mean Corpuscular HGB Conc 35 g/dL (31-36); Mean Corpuscular Hemoglobin 32 pg (27-31); Mean Corpuscular Volume 90 fL (80-97); Mean Platelet Volume 7.6 fL (7.4-10.4); Platelet Count 227 10^3/uL (150-450); Red Blood Count 4.44 10^6 /uL (3.70-4.87); Red Cell Distribution Width 15 % (10-15); White Blood Count 6.8 10^3/uL (3.5-10.8)
[2020-01-07 16:27] LABS: Activated Partial Thrombo Time 27.4 seconds (26.0-38.0); INR 1.1 (0.82-1.09)
[2020-01-07 16:29] LABS: Troponin I 0.01 ng/mL (<0.03)
[2020-01-07 16:31] LABS: CKMB ng/mL 1.1 ng/mL (0.6-6.3)
[2020-01-07 16:49] LABS: Albumin 4.3 g/dL (3.2-5.2); Albumin/Globulin Ratio 1.6 (1-3); BUN/Creatinine Ratio 7.7 (8-20); Calcium 9.7 mg/dL (8.6-10.3); EGFR Non-African American 21.5 (>60); Globulin 2.7 g/dL (2-4); Magnesium 1.9 mg/dL (1.9-2.7); Potassium 3.1 mmol/L (3.5-5.0); Total Bilirubin 0.6 mg/dL (0.2-1.0)
[2020-01-07 17:03] LABS: TSH Ultra Thyroid Stim Horm 0.39 mcIU/mL (0.34-5.60)
[2020-01-07] MEDS ORDERED: Potassium Chlor 20 meq TAB.ER PO ONE (17:05)
[2020-01-07] MEDS ORDERED: COLCHICINE 0.6 MG PO PRN (18:06)
[2020-01-07] MEDS ORDERED: Dextrose 50% Syringe 50 ml 25 GM/50 ML SYRINGE IV PUSH PRN (18:12)
[2020-01-07] MEDS ORDERED: Ondansetron 4 mg VIAL 2 MG/ML 2 ml VIAL IV PRN (18:14)
[2020-01-07 19:43] LABS: Troponin I 0.03 ng/mL (<0.03)
[2020-01-08 00:49] LABS: Urine Appearance Turbid; Urine Bilirubin Negative (Negative); Urine Blood 1+ (Negative); Urine Color Yellow; Urine Glucose 1+(50 mg/dL) (Negative); Urine Ketones Negative (Negative); Urine Nitrite Negative (Negative); Urine Protein 2+(100 mg/dL) (Negative); Urine Specific Gravity 1.006 (1.010-1.030); Urine Urobilinogen Negative (Negative)
[2020-01-08 01:09] LABS: Urine Bacteria 2+ (Absent); Urine Red Blood Cell 3+(>10/hpf) (Absent); Urine White Blood Cell 3+(>20/hpf) (Absent)
[2020-01-08] MEDS ORDERED: IRON-VITAMIN C 65/125(NF) (FERRONYL IRON) PO SCH ×2 (09:00)
[2020-01-08] MEDS ORDERED: Aspirin EC 81 mg TAB.EC (enteric coated) PO SCH (09:00)
[2020-01-08] MEDS ORDERED: Insulin GLARGINE 100 un/ml 10 ml VIAL SUBCUT SCH (09:00)
[2020-01-08] MEDS ORDERED: Cholecalciferol (VIT D3) 1,000 unit TAB PO SCH (09:00)
[2020-01-08 12:23] VITALS: BP 123/52
== END 2020-01-08 13:40 | disposition home or self-care (01) ==
LOC: ED 15:06 → MEDTELE 15:06 → ED 19:41
PROVIDERS: ADMIT Student in an Organized Health Care Education/Training Program; ATTEND Student in an Organized Health Care Education/Training Program

== ENCOUNTER 2024-01-13 08:48 | Inpatient (IN) ==
[2024-01-13 09:15] LABS: ABS Basophils 0.1 10^3/uL (0.0-0.1); ABS Eosinophils 0.3 10^3/uL (0.0-0.5); ABS Lymphocytes 1.4 10^3/uL (1.0-4.8); ABS Monocytes 0.7 10^3/uL (0.0-0.9); ABS Neutrophils 5.1 10^3/uL (1.5-7.6); Eosinophil % 4.5 %; Hemoglobin 8.7 g/dL (11.5-14.3); Mean Corpuscular Hemoglobin 31.9 pg (27-33); Mean Corpuscular Hgb Conc 34.6 g/dL (31-36); Mean Corpuscular Volume 92.3 fL (80-97); Mean Platelet Volume 7.3 fL (7.5-11.2); Platelet Count 240 10^3/uL (150-450); Red Blood Count 2.71 10^6/uL (3.63-4.92); Red Cell Distribution Width 12.9 % (12-17); White Blood Count 7.6 10^3/uL (3.8-11.8)
[2024-01-13 09:40] LABS: High Sens Troponin Baseline 23 pg/mL (<15)
[2024-01-13 10:07] LABS: ALT 11 U/L (7-52); AST 13 U/L (13-39); Albumin/Globulin Ratio 1.2 (1-3); Alkaline Phosphatase 79 U/L (35-149); Anion Gap 19 mmol/L (2-16); Blood Urea Nitrogen 50 mg/dL (6-24); CO2 Carbon Dioxide 25 mmol/L (22-32); Calcium 9.1 mg/dL (8.6-10.3); Chloride 99 mmol/L (101-111); Creatinine, Serum 8.63 mg/dL (0.51-0.95); Globulin 2.5 g/dL (2-4); Glucose 276 mg/dL (70-100); Potassium 3.9 mmol/L (3.5-5.0); Sodium 143 mmol/L (135-145); Total Bilirubin 0.3 mg/dL (0.2-1.0); Total Protein 5.5 g/dL (6.4-8.9); eGFR CKD-EPI 4.3 (>60)
[2024-01-13 10:52] LABS: INR 1.67 (0.85-1.14)
[2024-01-13 11:06] LABS: High Sensitivity Troponin 1 Hr 26 pg/mL (<15)
[2024-01-13 11:20] LABS: C Reactive Protein 63.28 mg/L (<8.01)
[2024-01-13 12:16] LABS: Magnesium 1.8 mg/dL (1.9-2.7)
[2024-01-13 12:19] LABS: TSH Ultra Thyroid Stim Horm 15.38 mcIU/mL (0.34-5.60)
[2024-01-13 12:21] LABS: Free T4 1.04 ng/dL (0.61-1.12)
[2024-01-13 12:47] LABS: High Sensitivity Troponin 3 Hr 25 pg/mL (<15)
[2024-01-13] MEDS: Furosemide 40 mg/4 ml IV VIAL IV SLOW PU ONE (14:42)
[2024-01-13] MEDS ORDERED: NS 0.9% 1000 ml BAG 200 ML IV PRN (18:04)
[2024-01-13] MEDS ORDERED: Heparin 1,000 UNIT/ML 10 ml (10,000 UNITS) CATHLAB/DIALYSIS DIALYSIS PRN (18:04)
[2024-01-13] MEDS ORDERED: Albumin Human 25% 25 GM/100 ML BTL IV PRN (18:04)
[2024-01-13] MEDS ORDERED: NS 0.9% 1000 ml BAG 100 ML IV PRN (18:04)
[2024-01-13] MEDS ORDERED: Sulfur Hexaflouride MICROSPHR 25 MG VIAL IV PRN (21:02)
[2024-01-13 21:17] LABS: % Iron Saturation 24 % (15-55); .Transferrin 158 mg/dL (203-362); Iron 53 ug/dL (50-212); LDH 232 U/L (140-271); Total Iron Binding Capacity 221 mcg/dL (250-450); Unsaturated Iron Binding 168 ug/dL
[2024-01-13 21:39] LABS: Ferritin 686.8 ng/mL (11-307)
[2024-01-13 21:43] LABS: Folate > 20.00 ng/mL (5.90-24.80)
[2024-01-13 21:44] LABS: Vitamin B12 645 pg/mL (180-914)
[2024-01-13] MEDS: cefTRIAXone 1 gm/50 mL D5W 1 GM/50 ML BAG IV SCH (22:18)
[2024-01-13 23:16] LABS: Hepatitis B Surface Antigen Nonreactive (Nonreactive)
[2024-01-13 23:33] LABS: Hepatitis B Surface Ab Immune (Immune)
[2024-01-13] MEDS: Azithromycin 500 mg/250 ml NS 500 MG/250 ML BAG IVPB SCH (23:38)
[2024-01-13] MEDS: Insulin NPH 100 units/ml SUBCUT SCH (23:38)
[2024-01-14 01:33] LABS: Urine Appearance Clear; Urine Bacteria Absent /HPF (Absent); Urine Bilirubin Negative (Negative); Urine Blood Negative (Negative); Urine Color Light-Yellow; Urine Glucose 4+ (>=1000 mg/dL) (Negative); Urine Ketones Negative (Negative); Urine Nitrite Negative (Negative); Urine Protein 1+ (>=30 mg/dL) (Negative); Urine Red Blood Cell Trace(0-2/hpf) /HPF (0-Trace); Urine Specific Gravity 1.012 (1.002-1.030); Urine Squamous Epithelial Cell Present /HPF (Absent); Urine Urobilinogen Negative (Negative); Urine White Blood Cell 1+(6-10/hpf) /HPF (0-Trace)
[2024-01-14 06:23] LABS: ABS Basophils 0.1 10^3/uL (0.0-0.1); ABS Eosinophils 0.3 10^3/uL (0.0-0.5); ABS Lymphocytes 1.6 10^3/uL (1.0-4.8); ABS Monocytes 0.8 10^3/uL (0.0-0.9); ABS Neutrophils 4.6 10^3/uL (1.5-7.6); Eosinophil % 4.6 %; Hematocrit 23.8 % (35-45); Hemoglobin 8.1 g/dL (11.5-14.3); Lymphocyte % 21.3 %; Mean Corpuscular Hemoglobin 31.4 pg (27-33); Mean Corpuscular Hgb Conc 34.1 g/dL (31-36); Mean Corpuscular Volume 91.9 fL (80-97); Mean Platelet Volume 7.5 fL (7.5-11.2); Platelet Count 233 10^3/uL (150-450); Red Blood Count 2.59 10^6/uL (3.63-4.92); Red Cell Distribution Width 12.7 % (12-17); White Blood Count 7.4 10^3/uL (3.8-11.8)
[2024-01-14 06:42] LABS: Albumin 2.8 g/dL (3.2-5.2); Albumin/Globulin Ratio 1.2 (1-3); Calcium 8.9 mg/dL (8.6-10.3); Creatinine, Serum 9.02 mg/dL (0.51-0.95); Globulin 2.3 g/dL (2-4); Magnesium 1.7 mg/dL (1.9-2.7); Total Bilirubin 0.3 mg/dL (0.2-1.0); Total Protein 5.1 g/dL (6.4-8.9); eGFR CKD-EPI 4.1 (>60)
[2024-01-14] MEDS: Metoprolol Tartrate 5 mg VIAL 5 ml VIAL (1 mg/ml) IV PRN (08:23)
[2024-01-14] MEDS: Cholecalciferol (VIT D3) 1,000 unit TAB PO SCH (08:32)
[2024-01-14] MEDS: Magnesium Sulfate 2 gm BAG 2 GM/50 ML BAG IVPB ONE (08:33)
[2024-01-14] MEDS: dilTIAZem 30 MG TAB PO ONE (08:33)
[2024-01-14] MEDS: Heparin 1,000 UNIT/ML 10 ml (10,000 UNITS) CATHLAB/DIALYSIS DIALYSIS SCH (09:40)
[2024-01-14] MEDS: Magnesium Sulfate IV 1GM/100ML 1 GM/100 ML BAG IV ONE (10:05)
[2024-01-14 12:38] LABS: ABS Basophils 0.1 10^3/uL (0.0-0.1); ABS Eosinophils 0.4 10^3/uL (0.0-0.5); ABS Lymphocytes 1.4 10^3/uL (1.0-4.8); ABS Neutrophils 6.3 10^3/uL (1.5-7.6); Eosinophil % 4.1 %; Hematocrit 25.1 % (35-45); Hemoglobin 8.5 g/dL (11.5-14.3); Lymphocyte % 15.3 %; Mean Corpuscular Hemoglobin 31.9 pg (27-33); Mean Corpuscular Hgb Conc 33.7 g/dL (31-36); Mean Corpuscular Volume 94.6 fL (80-97); Mean Platelet Volume 7.5 fL (7.5-11.2); Platelet Count 246 10^3/uL (150-450); Red Blood Count 2.65 10^6/uL (3.63-4.92); Red Cell Distribution Width 12.9 % (12-17); White Blood Count 9.2 10^3/uL (3.8-11.8)
[2024-01-14 16:57] LABS: Glucose Confirmatory 446 mg/dL (70-100)
[2024-01-14] MEDS: Iodixanol (CONTRAST) 320 MG/ML 100 ML SDV IV ONE (22:58)
[2024-01-15 05:58] LABS: ABS Basophils 0.1 10^3/uL (0.0-0.1); ABS Eosinophils 0.4 10^3/uL (0.0-0.5); ABS Lymphocytes 1.6 10^3/uL (1.0-4.8); ABS Monocytes 0.8 10^3/uL (0.0-0.9); ABS Neutrophils 3.5 10^3/uL (1.5-7.6); Eosinophil % 6.9 %; Hematocrit 22.3 % (35-45); Hemoglobin 7.5 g/dL (11.5-14.3); Lymphocyte % 24.4 %; Mean Corpuscular Hemoglobin 31.2 pg (27-33); Mean Corpuscular Hgb Conc 33.7 g/dL (31-36); Mean Corpuscular Volume 92.8 fL (80-97); Mean Platelet Volume 7.7 fL (7.5-11.2); Platelet Count 205 10^3/uL (150-450); Red Cell Distribution Width 12.8 % (12-17); White Blood Count 6.5 10^3/uL (3.8-11.8)
[2024-01-15 06:18] LABS: Calcium 8.8 mg/dL (8.6-10.3); Creatinine, Serum 9.32 mg/dL (0.51-0.95); Magnesium 2.4 mg/dL (1.9-2.7); Potassium 4.1 mmol/L (3.5-5.0); eGFR CKD-EPI 3.9 (>60)
[2024-01-15] MEDS ORDERED: Aminophylline 25 MG/ML VIAL ONE (12:06)
[2024-01-15] MEDS ORDERED: Regadenoson 0.4 MG/5 ML SYRINGE ONE (12:06)
[2024-01-15] MEDS ORDERED: Ondansetron 4 mg VIAL 2 MG/ML 2 ml VIAL IV PRN (15:00)
[2024-01-15] MEDS: Metoprolol Tartrate 5 mg VIAL 5 ml VIAL (1 mg/ml) IV ONE ×3 (15:19→16:25)
[2024-01-15] MEDS: Ondansetron 4 mg VIAL 2 MG/ML 2 ml VIAL ONE (15:56)
[2024-01-15 17:04] LABS: ABS Eosinophils 0.3 10^3/uL (0.0-0.5); ABS Monocytes 0.8 10^3/uL (0.0-0.9); ABS Neutrophils 6.1 10^3/uL (1.5-7.6); Eosinophil % 3.7 %; Hematocrit 24.1 % (35-45); Lymphocyte % 11.8 %; Mean Corpuscular Hemoglobin 30.8 pg (27-33); Mean Corpuscular Hgb Conc 33.2 g/dL (31-36); Mean Corpuscular Volume 92.8 fL (80-97); Mean Platelet Volume 7.5 fL (7.5-11.2); Platelet Count 223 10^3/uL (150-450); Red Blood Count 2.59 10^6/uL (3.63-4.92); White Blood Count 8.1 10^3/uL (3.8-11.8)
[2024-01-16 06:18] LABS: ABS Eosinophils 0.4 10^3/uL (0.0-0.5); ABS Lymphocytes 1.2 10^3/uL (1.0-4.8); ABS Monocytes 0.8 10^3/uL (0.0-0.9); ABS Neutrophils 3.6 10^3/uL (1.5-7.6); Hematocrit 22.5 % (35-45); Hemoglobin 7.6 g/dL (11.5-14.3); Mean Corpuscular Hemoglobin 31.2 pg (27-33); Mean Corpuscular Hgb Conc 33.8 g/dL (31-36); Mean Corpuscular Volume 92.3 fL (80-97); Mean Platelet Volume 7.8 fL (7.5-11.2); Platelet Count 217 10^3/uL (150-450); Red Blood Count 2.44 10^6/uL (3.63-4.92); Red Cell Distribution Width 12.5 % (12-17)
[2024-01-16 06:31] LABS: Calcium 8.9 mg/dL (8.6-10.3); Magnesium 2.3 mg/dL (1.9-2.7); Potassium 4.1 mmol/L (3.5-5.0); eGFR CKD-EPI 4.1 (>60)
[2024-01-16] MEDS: Influenza Vaccine *TRI* 2024-25* 0.5 ML SYRINGE IM ONE (09:34)
[2024-01-16] MEDS ORDERED: fentaNYL 100 mcg/2 ml 50 MCG/ML VIAL ONE (15:06)
[2024-01-16] MEDS ORDERED: Midazolam 10 mg/10 ml VIAL 1 mg/ml 10 ml VIAL (10 mg) ONE (15:06)
[2024-01-16] MEDS: Dextrose 50% Syringe 50 ml 25 GM/50 ML SYRINGE IV PUSH PRN (17:39)
[2024-01-16 18:09] LABS: Immature Retic Fraction 0.39
[2024-01-16 18:15] LABS: Corrected Retic Count 0.9 % (0.5-2.2); Hematocrit for Retic CNT 22.5 % (35-45); RBC Retic Count 2.44 10^6/ul (3.63-4.92)
[2024-01-17 06:16] LABS: ABS Eosinophils 0.4 10^3/uL (0.0-0.5); ABS Lymphocytes 0.9 10^3/uL (1.0-4.8); ABS Monocytes 0.6 10^3/uL (0.0-0.9); ABS Neutrophils 4.3 10^3/uL (1.5-7.6); Eosinophil % 6.5 %; Hematocrit 25.5 % (35-45); Hemoglobin 8.5 g/dL (11.5-14.3); Lymphocyte % 14.2 %; Mean Corpuscular Hemoglobin 30.7 pg (27-33); Mean Corpuscular Hgb Conc 33.2 g/dL (31-36); Mean Corpuscular Volume 92.3 fL (80-97); Mean Platelet Volume 7.8 fL (7.5-11.2); Platelet Count 256 10^3/uL (150-450); Red Blood Count 2.76 10^6/uL (3.63-4.92); Red Cell Distribution Width 12.7 % (12-17); White Blood Count 6.3 10^3/uL (3.8-11.8)
[2024-01-17 06:41] LABS: Calcium 9.3 mg/dL (8.6-10.3); Creatinine, Serum 8.94 mg/dL (0.51-0.95); Magnesium 2.2 mg/dL (1.9-2.7); Potassium 4.3 mmol/L (3.5-5.0); eGFR CKD-EPI 4.1 (>60)
[2024-01-17] MEDS: PEG 3000 GI LAVAGE 1 GALLON PO ONE (16:33)
[2024-01-17] MEDS: Gentamicin 0.1% OINTMENT 15 GM TUBE TOPICAL SCH (16:33)
[2024-01-18] MEDS: Metoprolol Tartrate 5 mg VIAL 5 ml VIAL (1 mg/ml) IV PRN (00:27)
[2024-01-18 06:23] LABS: ABS Basophils 0.1 10^3/uL (0.0-0.1); ABS Eosinophils 0.5 10^3/uL (0.0-0.5); ABS Lymphocytes 1.4 10^3/uL (1.0-4.8); ABS Monocytes 0.8 10^3/uL (0.0-0.9); ABS Neutrophils 4.6 10^3/uL (1.5-7.6); Eosinophil % 6.8 %; Hematocrit 24.1 % (35-45); Hemoglobin 8.4 g/dL (11.5-14.3); Lymphocyte % 19.7 %; Mean Corpuscular Hemoglobin 31.5 pg (27-33); Mean Corpuscular Hgb Conc 34.8 g/dL (31-36); Mean Corpuscular Volume 90.7 fL (80-97); Mean Platelet Volume 7.5 fL (7.5-11.2); Platelet Count 235 10^3/uL (150-450); Red Blood Count 2.65 10^6/uL (3.63-4.92); Red Cell Distribution Width 12.6 % (12-17); White Blood Count 7.3 10^3/uL (3.8-11.8)
[2024-01-18 06:42] LABS: Calcium 9.3 mg/dL (8.6-10.3); Creatinine, Serum 8.26 mg/dL (0.51-0.95); Potassium 3.8 mmol/L (3.5-5.0); eGFR CKD-EPI 4.5 (>60)
[2024-01-18] MEDS ORDERED: Flumazenil 0.5 mg/5 ml 0.1 MG/ML 5 ml VIAL IV PRN (12:10)
[2024-01-18] MEDS ORDERED: Naloxone 0.4 mg VIAL 0.4 mg/ml 1 ml VIAL IV PUSH PRN (12:10)
[2024-01-18] MEDS ORDERED: Midazolam 10 mg/10 ml VIAL 1 mg/ml 10 ml VIAL (10 mg) ONE (13:17)
[2024-01-18] MEDS ORDERED: fentaNYL 100 mcg/2 ml 50 MCG/ML VIAL ONE (13:17)
[2024-01-18 15:59] VITALS: BP 120/59
[2024-01-18] MEDS: fentaNYL 100 mcg/2 ml 50 MCG/ML VIAL IV SLOW PU ONE (16:00)
[2024-01-18] MEDS: Midazolam 10 mg/10 ml VIAL 1 mg/ml 10 ml VIAL (10 mg) IV SLOW PU ONE (16:01)
[2024-01-18] MEDS: Lactated Ringers 1000 ml BAG 1,000 ML IV ONE (16:01)
[2024-01-18] MEDS: Ondansetron 4 mg VIAL 2 MG/ML 2 ml VIAL IV ONE (16:01)
== END 2024-01-18 17:40 | disposition home or self-care (01) | DRG 682 ==
LOC: ED 08:48 → SUATTDRO 19:32 → EDHOLD 19:32 → MEDTELE 20:35
PROVIDERS: ADMIT Internal Medicine; ATTEND Student in an Organized Health Care Education/Training Program

== ENCOUNTER 2024-02-20 12:23 | Inpatient (IN) ==
[2024-02-20] MEDS ORDERED: Morphine 4 MG/ML VIAL (1 ml) ONE (13:58)
[2024-02-20] MEDS ORDERED: Ondansetron 4 mg VIAL 2 MG/ML 2 ml VIAL ONE (13:58)
[2024-02-20] MEDS: Ondansetron 4 mg VIAL 2 MG/ML 2 ml VIAL IV ONE (14:15)
[2024-02-20 14:24] LABS: ABS Basophils 0.1 10^3/uL (0.0-0.1); ABS Lymphocytes 1.8 10^3/uL (1.0-4.8); ABS Monocytes 1.3 10^3/uL (0.0-0.9); ABS Neutrophils 10.4 10^3/uL (1.5-7.6); Eosinophil % 0.4 %; Hematocrit 30.5 % (35-45); Hemoglobin 9.7 g/dL (11.5-14.3); Mean Corpuscular Hemoglobin 28.9 pg (27-33); Mean Corpuscular Hgb Conc 31.9 g/dL (31-36); Mean Corpuscular Volume 90.4 fL (80-97); Mean Platelet Volume 7.6 fL (7.5-11.2); Platelet Count 395 10^3/uL (150-450); Red Blood Count 3.38 10^6/uL (3.63-4.92); Red Cell Distribution Width 14.2 % (12-17); White Blood Count 13.6 10^3/uL (3.8-11.8)
[2024-02-20 15:26] LABS: High Sens Troponin Baseline 83 pg/mL (<15)
[2024-02-20 15:30] LABS: Anion Gap 26 mmol/L (2-16); Blood Urea Nitrogen 63 mg/dL (6-24); C Reactive Protein 285.99 mg/L (<8.01); CO2 Carbon Dioxide 21 mmol/L (22-32); Calcium 8.9 mg/dL (8.6-10.3); Chloride 94 mmol/L (101-111); Creatinine, Serum 9.32 mg/dL (0.51-0.95); Glucose 99 mg/dL (70-100); Potassium 4.5 mmol/L (3.5-5.0); Sodium 141 mmol/L (135-145); eGFR CKD-EPI 3.9 (>60)
[2024-02-20 15:32] LABS: ALT < 3 U/L (7-52); AST 25 U/L (13-39); Albumin 2.8 g/dL (3.2-5.2); Alkaline Phosphatase 95 U/L (35-149); Globulin 2.9 g/dL (2-4); Lipase 10 U/L (11.0-82.0); Magnesium 1.6 mg/dL (1.9-2.7); Total Bilirubin 0.5 mg/dL (0.2-1.0); Total Protein 5.7 g/dL (6.4-8.9)
[2024-02-20] MEDS ORDERED: Ondansetron 4 mg VIAL 2 MG/ML 2 ml VIAL IV PRN (16:11)
[2024-02-20] MEDS: Morphine 2 MG/ML SYRINGE IV PRN (16:24)
[2024-02-20] MEDS: Morphine ORAL CONCENTRATE 5 MG/0.25 ML ORAL.SYRIN SL ONE (23:52)
[2024-02-21 02:29] VITALS: BP 127/65
[2024-02-21] MEDS: Morphine ORAL CONCENTRATE 5 MG/0.25 ML ORAL.SYRIN SL PRN ×2 (05:53→11:15)
[2024-02-21] MEDS ORDERED: Morphine ORAL CONCENTRATE 5 MG/0.25 ML ORAL.SYRIN SL PRN (07:50)
[2024-02-21] MEDS: Ondansetron ODT 4 mg TAB 4 MG TAB SL PRN (11:14)
[2024-02-21] MEDS: fentaNYL PATCH 12 MCG/HR 1 PATCH TRANSDERM SCH (14:30)
[2024-02-21] MEDS: fentaNYL Patch Check Q Shift NOTE FOLLOW UP SCH (19:21)
[2024-02-22] MEDS ORDERED: Lorazepam PYXIS KEY PRN (05:48)
[2024-02-22] MEDS: LORazepam 2 mg VIAL 1 ml IM ONE (06:05)
[2024-02-25] MEDS: Scopolamine 1 mg/72hr PATCH TRANSDERM SCH (12:56)
[2024-02-25] MEDS: Nystatin TOP POWDER 15 GM BTL TOPICAL SCH (16:29)
[2024-02-25] MEDS: Morphine ORAL CONCENTRATE 5 MG/0.25 ML ORAL.SYRIN SL PRN (18:22)
[2024-02-26] MEDS: Morphine ORAL CONCENTRATE 5 MG/0.25 ML ORAL.SYRIN SL SCH (10:18)
[2024-02-26] MEDS: fentaNYL PATCH 25 MCG/HR 1 PATCH TRANSDERM SCH (12:38)
[2024-02-27] MEDS ORDERED: Atropine 1% (ORAL/SL) 15 ML BTL SL PRN (07:36)
== END 2024-02-27 09:15 | disposition expired | DRG 951 ==
LOC: ED 12:23 → EDHOLD 12:23 → OBSVTOIN 16:03 → MED 22:03
PROVIDERS: ADMIT Student in an Organized Health Care Education/Training Program; ATTEND Internal Medicine